=== PATIENT | female | born 1950 | race Caucasian/White ===

== ENCOUNTER 2023-10-07 23:10 | Inpatient (IN) | payer MEDICARE, SELFPAY ==
[2023-10-08] VITALS (7 sets, daily range): BP systolic 150–188; BP diastolic 80–102; PULSE 62–72; RESP 18–20; TEMP 36.1–37.4; O2SAT 96–98; BMI 23.0
[2023-10-08] MEDS: KCL 20 MEQ IN NS 1,000 ML 84 MEQ IV (02:13)
[2023-10-08 02:30] LABS: Appearance Urine UA CLEAR; Bilirubin Urine UA NEGATIVE (NEGATIVE); Color Urine UA YELLOW; Glucose Urine UA NEGATIVE (Negative); Ketones Urine UA 2+ (NEGATIVE); Leukocyte Esterase Urine UA NEGATIVE (NEGATIVE); Nitrite Urine UA NEGATIVE (Negative); Occult Blood Urine UA NEGATIVE (Negative); Protein Urine UA NEGATIVE (Negative); Specific Gravity Urine UA 1.015 (1.000-1.035); Urobilinogen Urine UA 0.2 E.U./dL (0.2)
[2023-10-08 02:51] LABS: Bacteria Urine None Seen; Culture Indicated Urine Cult Not Indicated; RBC Urine None Seen (0-5/HPF); Squamous Epithelial Cell Urine 0-1 /HPF (0-5/HPF); Urine Volume 10mL (spun); WBC Urine None Seen (0-5/HPF)
[2023-10-08 05:34] LABS: Add Manual Diff / Slide Review NO; Basophils Absolute Auto 100 /uL (0-100); Basophils Percent Auto 0.8 % (0-2); Eosinophils Absolute Auto 100 /uL (0-450); Eosinophils Percent Auto 1.6 % (2-4); Hematocrit 38.4 % (36-46); Hemoglobin 12.8 g/dL (12.0-16.0); Lymphocytes Absolute Auto 1800 /uL (1100-4500); Lymphocytes Percent Auto 24.1 % (25-40); Mean Corpuscular HGB Conc 33.2 % (30-36); Mean Corpuscular Hemoglobin 29.3 PG (26-34); Mean Corpuscular Volume 88.3 fL (80-100); Monocytes Absolute Auto 800 /uL (0-900); Neutrophils Absolute Auto 4600 /uL (1500-7000); Neutrophils Percent Auto 62.5 % (50-75); Platelet Count 247 X10^3/uL (150-400); Red Blood Cell Count 4.35 X10^6/uL (4.0-5.2); White Blood Cell Count 7.4 X10^3/uL (4.5-11.0)
[2023-10-08 05:55] LABS: PTT Partial Thromboplastin Tim 32 SECONDS (25.1-36.5)
[2023-10-08 06:06] LABS: Alanine Aminotransferase 24 IU/L (<35); Albumin 3.9 g/dL (3.5-5.0); Albumin Globulin Ratio 1.3 (1.0-2.8); Alkaline Phosphatase 77 U/L (38-126); Aspartate Aminotransferase 28 IU/L (14-36); BUN Creatinine Ratio 29.6 (6-22); Bilirubin Total 0.6 mg/dL (0.2-1.3); Blood Urea Nitrogen 16 mg/dL (7-17); Calcium 8.9 mg/dL (8.4-10.2); Carbon Dioxide 25 mmol/L (22-32); Chloride 110 mmol/L (98-107); Estimated Glomerular Filt Rate > 60 mL/min (>60); Globulin 2.9 g/dL (1.7-4.1); Glucose 96 mg/dL (80-110); HEMOLYSIS < 15 (0-50); Magnesium 2.2 mg/dL (1.6-2.3); Potassium 3.5 mmol/L (3.4-5.1); Sodium 141 mmol/L (137-145); Total Protein 6.8 g/dL (6.3-8.2)
--- NOTE | 2023-10-08 07:18 | PC.NURSE ---
Pt admitted to AC unit at 00:30 from [facility] on Monday transferred by [facility]. Alert and oriented x 4, answers questions appropriately. NIH 2, slight left arm drift and expressive aphasia. KCL with NS running @ 84ml/hr. SBA for transfers. Oriented to room and call light. Bed alarm on and call light within reach.
--- NOTE | 2023-10-08 07:18 | PM.HP.1 ---
History of Present Illness History of Present Illness Date Patient Seen: 10/08/23 Time Patient Seen: 01:30 Chief complaint: DX, CVA Narrative: Transfer from [facility] 73 years old female with a past medical history of hypertension was initially evaluated by her primary physician with significant speech issues. She had went to bed normally and woke up around midnight not being able to talk. In the morning on 10/04, was told to have a major mental status change and was not able to focus. Denies any weakness in the upper or lower extremity with no significant gait instability. Reports a newly diagnosed colorectal cancer with scheduled chemotherapy. Subsequently underwent MRI of the head that shows an acute infarction involving the left basal ganglia. Neurology was consulted and recommended management medically but transfer to higher level of care due to lack of telemetry or other available medical facilities. Subsequently transferred to [facility] for further care [facility] Social History household members: family Smoking Status: Never smoker alcohol intake: former Meds Home Medications and Allergies Home Medications Medication Instructions Recorded Confirmed Type acetaminophen 500 mg PO Q6HR PRN Pain, Mild 10/08/23 10/08/23 History amlodipine 5 mg tablet 5 mg PO DAILY 10/08/23 10/08/23 History capecitabine 150 mg tablet (Xeloda) 150 mg PO DAILY 10/08/23 10/08/23 History capecitabine 500 mg tablet (Xeloda) 500 mg PO DAILY 10/08/23 10/08/23 History losartan 50 mg tablet 50 mg PO DAILY 10/08/23 10/08/23 History ondansetron HCl 8 mg tablet 8 mg PO Q8H PRN nausea 10/08/23 10/08/23 History oxycodone 5 mg tablet 5 mg PO Q6H PRN pain 10/08/23 10/08/23 History polyethylene glycol 3350 17 17 g PO DAILY PRN Constipation 10/08/23 10/08/23 History gram/dose oral powder (Miralax) prochlorperazine maleate 10 mg 10 mg PO Q6HR nausea 10/08/23 10/08/23 History tablet (Compazine) tretinoin 0.05 % topical cream 1 applic topical BEDTIME 10/08/23 10/08/23 History (Retin-A) Allergies Allergy/AdvReac Type Severity Reaction Status Date / Time shellfish derived Allergy Unknown Verified 10/08/23 01:04 aspirin Allergy Unknown Uncoded 10/08/23 01:02 Review of Systems Review of Systems Narrative: A 12 point review of system is negative unless otherwise stated in history of present illness Exam Vital Signs (past 8 hours): - 10/08/23 00:40 10/08/23 04:38 Temperature 97.4 F L 96.9 F L Pulse Rate 72 72 Respiratory Rate 20 19 Blood Pressure 188/95 H 151/88 H Pulse Oximetry 98 97 Narrative Exam Narrative: Patient is awake, able to follow commands. Responding appropriately to time place and person. Extremities?4-5/5 in upper and lower extremity Objective Labs 10/08/23 05:12 10/08/23 05:12 Labs: Laboratory Results - last 24 hr 10/08/23 10/08/23 00:40 05:12 WBC 7.4 RBC 4.35 Hgb 12.8 Hct 38.4 MCV 88.3 MCH 29.3 MCHC 33.2 RDW 14.0 Plt Count 247 Neut % (Auto) 62.5 Lymph % (Auto) 24.1 L [place] % (Auto) 11.0 Eos % (Auto) 1.6 L Baso % (Auto) 0.8 Neut # (Auto) 4600 Lymph # (Auto) 1800 [place] # (Auto) 800 Eos # (Auto) 100 Baso # (Auto) 100 APTT 32 Sodium 141 Potassium 3.5 Chloride 110 H Carbon Dioxide 25 BUN 16 Creatinine 0.54 Estimated GFR > 60 BUN/Creatinine Ratio 29.6 H Glucose 96 Calcium 8.9 Magnesium 2.2 Total Bilirubin 0.6 AST 28 ALT 24 Alkaline Phosphatase 77 Total Protein 6.8 Albumin 3.9 Globulin 2.9 Albumin/Globulin Ratio 1.3 Urine Color Yellow Urine Appearance Clear Urine pH 7.0 Ur Specific [place] 1.015 Urine Protein Negative Urine Glucose (UA) Negative Urine Ketones 2+ H Urine Occult Blood Negative Urine Nitrate Negative Urine Bilirubin Negative Urine Urobilinogen 0.2 Ur Leukocyte Esterase Negative Urine RBC None seen Urine WBC None seen Ur Squamous Epith Cells 0-1 /hpf Urine Bacteria None seen Ur Culture Indicated? Cult not indicated Vol Urine Centrifuged 10ml (spun) Assessment & Plan Assessment & Plan narrative: 73 years old female with a past medical history of hypertension was initially evaluated by her primary physician with significant speech issues. She had went to bed normally and woke up around midnight not being able to talk. In the morning on 10/04, was told to have a major mental status change and was not able to focus. Denies any weakness in the upper or lower extremity with no significant gait instability. Reports a newly diagnosed colorectal cancer with scheduled chemotherapy. Subsequently underwent MRI of the head that shows an acute infarction involving the left basal ganglia. Neurology was consulted and recommended management medically but transfer to higher level of care due to lack of telemetry or other available medical facilities. Subsequently transferred to [facility] for further care 1. 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 From reports, patient was like a 4-year-old. But now patient is oriented able to answer questions though she has slow speech with slow recollection but able to answer them. Currently has gait instability. Focus on medical management since she is out of the tPA window. Monitor in the telemetry, get an echocardiogram, consult physical occupational and speech therapy. Gradual reduction in the blood pressures and monitor for now 2. Hypokalemia. Will supplement 20 levels closely 3 history of cancer being followed by oncology in the outpatient setting. Locally advanced rectal adenocarcinoma favoring CT 4 B N0 M0 per records. Scheduled for neoadjuvant therapy with long course chemoradiation with Xeloda followed by total 6 weeks of chemotherapy per records. Ongoing patient management 4. DVT prophylaxis will be with Lovenox . 5 hypertension. Hold home blood pressure medications focus on gradual diet. Target systolic blood pressureis 160 Patient will be admitted under inpatient status with an acute stroke with need for further intervention with expected length of stay greater than 2 midnights Patient was evaluated by audiovideo device. Location of the patient is [facility] in [facility]. Time-Based Coding :: [TOTAL MINUTES] spent with patient and on the chart (including review of chart, obtaining history, exam, reviewing outside data, placing orders, documenting exam and treatment plan, and counseling patient) on [DATE].
--- NOTE | 2023-10-08 07:51 | DI.ECHO.S_ITS ---
[facility]+ [facility] : : [address] : : [place] : : [id number] : : Phone: [phone] Echocardiogram Report + + :Name: MESSI FOSTER Study Date: 10/08/2023 Height: 63 in : :Hospital ReadingLocation: Weight: 126 lb : : Gender: Female BSA: 1.6 m2 : :: 1950 Age: 73 yrs BP: 160/93 mmHg: :Reason For Study: CVA : :Ordering Physician: AVA, : :MILLIE Neves MD Performed By: Apolonia Kessler : :Referring: MILLIE ESCALANTE MD : + + Interpretation Summary The ejection fraction is estimated to be 60-65%. Diastolic parameters suggest probable normal left ventricular diastolic function and normal filling pressures. The right ventricle is normal in size and function. No significant valvular abnormalities. Pulmonary artery pressures cannot be estimated because of the lack of a measurable TR jet velocity but the IVC suggests a CVP of around 3 mmHg. Procedure: A two-dimensional transthoracic echocardiogram with color flow and Doppler was performed. The study quality was technically good. There is no prior echocardiogram noted for this patient. The patient was in sinus rhythm with heart rates between 64-67 bpm during the exam. Left Ventricle: The left ventricle is normal in size and wall thickness. The ejection fraction is estimated to be 60-65%. Diastolic parameters suggest probable normal left ventricular diastolic function and normal filling pressures. Right Ventricle: The right ventricle is normal in size and function. Atria: The left atrial size is normal. Right atrial size is normal. There is no Doppler evidence for an interatrial shunt. Mitral Valve: There is mild mitral annular calcification. The mitral valve leaflets appear mildly thickened, but open well. There is trace mitral regurgitation. Aortic Valve: The aortic valve is trileaflet. The aortic valve is mildly calcified. There is no aortic valve stenosis. No aortic regurgitation is present. Tricuspid Valve: The tricuspid valve is normal in structure and function. There is a trace or physiologic amount of tricuspid regurgitation. Pulmonary artery pressures cannot be estimated because of the lack of a measurable TR jet velocity but the IVC suggests a CVP of around 3 mmHg. Pulmonic Valve: The pulmonic valve is not well visualized. There is no pulmonic valvular regurgitation. Great Vessels: The aortic root is normal size. The dimensions of the ascending aorta are normal. The IVC is of normal diameter and collapses greater than 50% with a sniff. This suggests a low right atrial pressure of 3 mm Hg. Pericardium/ Pleura There is no pericardial effusion. There is no pleural effusion. MMode/2D Measurements & Calculations LVIDd: 3.8 cm LVOT diam: 2.0 cm LVIDs: 2.4 cm Ao root diam: 2.7 cm FS: 37.9 % asc Aorta Diam: 3.4 cm IVSd: 0.98 cm Ao Arch Diam (Prox Trans): 1.7 cm LVPWd: 0.84 cm LV ball. diameter/BSA (cm/m^2): 2.4 LV sys. diameter/BSA (cm/m^2): 1.5 LA A2 area: 12.6 cm2 RA long axis: 4.2 cm LA A4 area: 12.5 cm2 RA area: 11.3 cm2 LA length (vol): 3.7 cm RA vol: 25.9 ml LA vol: 35.9 ml RA : 16.3 ml/m2 LA vol index: 22.6 ml/m2 IVC diam: 0.91 cm RVD1 (basal): 3.7 cm TAPSE: 1.8 cm Doppler Measurements & Calculations Ao V2 max: 190.5 cm/sec LVOT Max Kimo: 90.5 cm/sec Ao V2 mean: 136.4 cm/sec LV V1 max P.3 mmHg Ao max P.5 mmHg LV V1 VTI: 19.6 cm Ao mean P.0 mmHg VICENTE(I,D): 1.5 cm2 Ao V2 VTI: 42.6 cm VICENTE(V,D): 1.5 cm2 sev ratio: 0.46 VICENTE indexed to BSA (cm^2/m^2): 0.93 MV E max kimo: 87.3 cm/sec PA V2 max: 74.5 cm/sec MV A max kimo: 78.3 cm/sec PA V2 mean: 54.3 cm/sec MV E/A: 1.1 PA mean P.3 mmHg Med Peak E' Kimo: 6.8 cm/sec PA pr(Accel): 46.5 mmHg E/E' med: 12.9 Lat Peak E' Kimo: 8.3 cm/sec E/E' lat: 10.5 E/e' average: 11.7 MV dec time: 0.15 sec SV(LVOT): 63.2 ml Reading Physician:03:13 PM
--- NOTE | 2023-10-08 09:18 | DI.CT.S_ITS ---
PROCEDURE: CT ANGIO HEAD AND NECK INDICATIONS: CVA TECHNIQUE: After the administration of intravenous contrast, 1 mm thick sections acquired from the aortic arch through the [place]. MIP reformats of the arterial vasculature were utilized. For radiation dose reduction, the following was used: automated exposure control, adjustment of mA and/or kV according to patient size. COMPARISON: None. FINDINGS: Cerebral CT Angiogram: Internal carotid arteries: No acute findings. Intracranial ICA are patent with no significant stenosis. No occlusion. No aneurysm. Anterior cerebral arteries: Unremarkable. No significant stenosis. No occlusion. No aneurysm. Middle cerebral arteries: Unremarkable. No significant stenosis. No occlusion. No aneurysm. 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 The P2 segment is supplied by a widely patent posterior communicating artery. Remainder of the distal vasculature unremarkable. Basilar artery: Diminutive but patent artery terminates in the superior cerebellar artery. Vertebral arteries: Left vertebral artery dominance. The right vertebral artery is quite diminutive but patent. Dural venous sinuses: Unremarkable given phase of enhancement. Other: Arterial phase brain parenchyma is unremarkable. Neck CT Angiogram: Internal carotid arteries: Unremarkable. No significant stenosis. No dissection or occlusion. Common carotid arteries: Unremarkable. No significant stenosis. No dissection or occlusion. External carotid arteries: Unremarkable. No occlusion. Vertebral arteries: Left vertebral artery dominance. Right vertebral artery diminutive but patent Other: Incidental 1 cm right thyroid nodule, no follow-up Aortic Arch and Mediastinum: Partially visualized aortic arch unremarkable without evidence of aneurysm. Origins of the great vessels unremarkable. IMPRESSION: Unremarkable CT angiogram of the head neck. No evidence of large vessel occlusion, aneurysm or vascular malformation Any quantitative measurements of stenosis were performed using NASCET criteria. Approved by: Jason Fitch M.D. on 10/08/2023 at 14:30
[2023-10-08 09:34] LABS: Cholesterol 251 mg/dL (140-199); HDL Cholesterol 64 mg/dL (40-60); LDL Cholesterol Calculated 174 mg/dL (<100); Triglycerides 67 mg/dL (35-150)
[2023-10-08 10:05] LABS: TSH w/ Reflex to FT4 1.71 uIU/mL (0.47-4.68)
--- NOTE | 2023-10-08 10:43 | PM.HP.1 ---
History of Present Illness History of Present Illness Date Patient Seen: 10/08/23 Time Patient Seen: 08:05 Date of Onset of Symptoms: 10/05/23 Chief complaint: DX, CVA Narrative: 73 years old female with a past medical history of hypertension was initially evaluated by her primary physician with significant speech issues. She had went to bed normally and woke up around midnight not being able to talk. In the morning on 10/04, was told to have a major mental status change and was not able to focus. Denies any weakness in the upper or lower extremity with no significant gait instability. Reports a newly diagnosed colorectal cancer with scheduled chemotherapy. Subsequently underwent MRI of the head that shows an acute infarction involving the left basal ganglia. Neurology was consulted and recommended management medically but transfer to higher level of care due to lack of telemetry or other available medical facilities. Subsequently transferred to [facility] for further care Interval history: The patient was admitted overnight and a in continues to have change in mental status according to her sister's Sylvia and anti. Alyse is present at bedside and I spoke with Marissa by phone in at the bedside with the patient. Both agree that she appears to have mild confusion and a child-like manner. The patient appears to understand her condition on interview with fluent speech though also appears frustrated at times. She states persistent weakness and has mild left pronator drift. She states chronic left leg pain with a history of sciatica, and uses a TENS unit at home, which her sister brought in. She relates that she was severely constipated starting at the end of June and underwent evaluation including biopsy of an anal mass on 09/13/2023, with biopsy report per record showing invasive moderately differentiated colonic adenocarcinoma present at the deep edge of the excision, with normal expression of mismatch repair proteins unlikely to represent Mendiola syndrome. Per her oncologist Dr. Costa MRI was without patricia disease, however with signs of local invasion through the internal/external anal sphincter, right levator ani muscle and potentially the posterior wall of the vagina, without evidence of metastatic disease on staging, however right lung 5 mm nodule favored to be unrelated. [facility] Medical History Chronic low back pain with left-sided sciatica Essential hypertension Colorectal cancer CVA (cerebral vascular accident) Social History household members: family Smoking Status: Never smoker alcohol intake: former Meds Home Medications and Allergies Home Medications Medication Instructions Recorded Confirmed Type acetaminophen 500 mg PO Q6HR PRN Pain, Mild 10/08/23 10/08/23 History amlodipine 5 mg tablet 5 mg PO DAILY 10/08/23 10/08/23 History capecitabine 150 mg tablet (Xeloda) 150 mg PO DAILY 10/08/23 10/08/23 History capecitabine 500 mg tablet (Xeloda) 500 mg PO DAILY 10/08/23 10/08/23 History losartan 50 mg tablet 50 mg PO DAILY 10/08/23 10/08/23 History ondansetron HCl 8 mg tablet 8 mg PO Q8H PRN nausea 10/08/23 10/08/23 History oxycodone 5 mg tablet 5 mg PO Q6H PRN pain 10/08/23 10/08/23 History polyethylene glycol 3350 17 17 g PO DAILY PRN Constipation 10/08/23 10/08/23 History gram/dose oral powder (Miralax) prochlorperazine maleate 10 mg 10 mg PO Q6HR nausea 10/08/23 10/08/23 History tablet (Compazine) tretinoin 0.05 % topical cream 1 applic topical BEDTIME 10/08/23 10/08/23 History (Retin-A) Allergies Allergy/AdvReac Type Severity Reaction Status Date / Time aspirin Allergy Unknown Verified 10/08/23 09:32 shellfish derived Allergy Unknown Verified 10/08/23 01:04 Review of Systems Review of Systems ROS: Yes All systems reviewed with the patient and are negative except as otherwise documented Exam Vital Signs (past 8 hours): - 10/08/23 04:38 10/08/23 08:08 Temperature 96.9 F L 98.9 F Pulse Rate 72 72 Respiratory Rate 19 19 Blood Pressure 151/88 H 160/93 H Pulse Oximetry 97 97 Oxygen Flow Rate 0 Oxygen Flow Rate 0 Narrative Exam Narrative: GENERAL: This is a well-nourished, well-developed patient, in no apparent distress, appears mildly anxious. HEAD: Atraumatic. Normocephalic. No temporal or scalp tenderness. EYES: Pupils equal round and reactive. Extraocular motions intact. No scleral icterus. No injection or drainage. ENT: Mucous membranes pink and moist. NECK: Trachea midline. No JVD, bruits or lymphadenopathy. Supple, nontender, no meningeal signs. CARDIOVASCULAR: Regular rate and rhythm without murmurs, gallops, or rubs. RESPIRATORY: Clear to auscultation. GASTROINTESTINAL: Abdomen soft, non-tender, nondistended. EXTREMITIES: No clubbing, cyanosis, or edema. BACK: Nontender without deformity or crepitance. No flank tenderness. NEUROLOGIC: Alert, oriented, speech fluent, full upper motor strength except mild left pronator drift, 4/5 lower extremity weakness DERMATOLOGIC: No rashes or skin lesions. Objective ECG Impression: EKG 10/07/2023 at 3:54 p.m. normal sinus rhythm at 75 beats per minute, no ischemic changes, normal EKG. Imaging MRI brain with and without contrast 10/07/2023: Radiologist's impression: There is an acute infarction involving the left basal ganglia and portions of the putamen Labs 10/08/23 05:12 10/08/23 05:12 Labs: Laboratory Results - last 24 hr 10/08/23 10/08/23 00:40 05:12 WBC 7.4 RBC 4.35 Hgb 12.8 Hct 38.4 MCV 88.3 MCH 29.3 MCHC 33.2 RDW 14.0 Plt Count 247 Neut % (Auto) 62.5 Lymph % (Auto) 24.1 L [place] % (Auto) 11.0 Eos % (Auto) 1.6 L Baso % (Auto) 0.8 Neut # (Auto) 4600 Lymph # (Auto) 1800 [place] # (Auto) 800 Eos # (Auto) 100 Baso # (Auto) 100 APTT 32 Sodium 141 Potassium 3.5 Chloride 110 H Carbon Dioxide 25 BUN 16 Creatinine 0.54 Estimated GFR > 60 BUN/Creatinine Ratio 29.6 H Glucose 96 Calcium 8.9 Magnesium 2.2 Total Bilirubin 0.6 AST 28 ALT 24 Alkaline Phosphatase 77 Total Protein 6.8 Albumin 3.9 Globulin 2.9 Albumin/Globulin Ratio 1.3 Triglycerides 67 Cholesterol 251 H LDL Cholesterol, Calc 174 H HDL Cholesterol 64 H TSH 1.71 Urine Color Yellow Urine Appearance Clear Urine pH 7.0 Ur Specific [place] 1.015 Urine Protein Negative Urine Glucose (UA) Negative Urine Ketones 2+ H Urine Occult Blood Negative Urine Nitrate Negative Urine Bilirubin Negative Urine Urobilinogen 0.2 Ur Leukocyte Esterase Negative Urine RBC None seen Urine WBC None seen Ur Squamous Epith Cells 0-1 /hpf Urine Bacteria None seen Ur Culture Indicated? Cult not indicated Vol Urine Centrifuged 10ml (spun) Assessment & Plan Assessment & Plan narrative: 73 year old female with a past medical history of hypertension was initially evaluated by her primary physician with significant speech issues. She had went to bed normally and woke up around midnight not being able to talk. In the morning on 10/04, was told to have a major mental status change and was not able to focus. Denies any weakness in the upper or lower extremity with no significant gait instability. Reports a newly diagnosed colorectal cancer with scheduled chemotherapy. Subsequently underwent MRI of the head that shows an acute infarction involving the left basal ganglia. Neurology was consulted and recommended management medically but transfer to higher level of care due to lack of telemetry or other available medical facilities. Subsequently transferred to [facility] for further care 1. 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 From reports, patient was like a 4-year-old. But now patient is oriented able to answer questions though she has slow speech with slow recollection but able to answer them, though family reports she still is not at baseline. Her basal ganglia stroke does not explain possible behavioral or cortical changes, and will continue to observe with frequent checks.. Currently has gait instability. Focus on medical management since she is out of the tPA window. Monitor on telemetry, obtain echocardiogram, consult physical occupational and speech therapy. Gradual reduction in the blood pressures and monitor for now. Treat with aspirin 325 mg daily and atorvastatin 80 mg daily. Check lipids. 2. Hypertension. Monitor and allow permissive hypertension. Restart amlodipine 5 mg daily and losartan 50 mg daily tomorrow if stable. Target systolic blood pressure is 160. 3. Hypokalemia. Will supplement 20 levels closely 4. Colorectal cancer. She is followed by oncology in the outpatient setting. Locally advanced rectal adenocarcinoma favoring T4B N0 M0 per records. Scheduled for neoadjuvant therapy with long course chemoradiation with Xeloda followed by total 6 weeks of chemotherapy per records. Ongoing patient management 5. Chronic back pain with left-sided sciatica. Continue TENS unit and Tylenol as needed. Consider lumbar MRI, which can be pursued outpatient given chronic nature and outpatient oncologic workup. 6. DVT prophylaxis will be with Lovenox 7. Code status: Full code. Reviewed with the patient on admission with her sister present by phone. Plan: -telemetry monitoring -permissive hypertension goal blood pressure 160 -aspirin 325 mg daily -atorvastatin 80 mg daily -check lipids and TSH -echocardiogram -physical therapy consultation -speech therapy consultation -Lovenox DVT prophylaxis -full code status Patient will be admitted under inpatient status with an acute stroke with need for further intervention with expected length of stay greater than 2 midnights Time-Based Coding :: [TOTAL MINUTES] spent with patient and on the chart (including review of chart, obtaining history, exam, reviewing outside data, placing orders, documenting exam and treatment plan, and counseling patient) on [DATE]. Quality VTE Deep Vein Thrombosis/Pulmonary Embolism Present on Admission: No MIPS - Admit I confirm the patient?s Advance Care Plan is present, Code status is documented, Surrogate decision maker is in patient?s record [If Yes, STOP here]: Yes MIPS - Meds 'Current medications' to include all prescriptions, [id number] products, herbals, cannabis/cannabidiol products, and vitamin/mineral/dietary (nutritional) supplements. I have utilized all available resources to obtain, update, or review the patient?s current medications. [If Yes, STOP here]: Yes PROFEE Charge Codes Initial inpatient/observation care: 44624
--- NOTE | 2023-10-08 12:26 | PT.IIE ---
Medical History (Last Reviewed 10/08/23 @ 12:13 by Preet Zambrano MD) Chronic low back pain with left-sided sciatica Colorectal cancer CVA (cerebral vascular accident) Essential hypertension Physical Therapy Inpatient Evaluation/Re-Eval M1 PT/OT-IP Prior Functional Status Start: 10/08/23 10:25 Freq: NEEDED Status: Active Protocol: Document 10/08/23 11:05 MB (Rec: 10/08/23 12:25 MB [id number]) Medical Review Prior Functional Status Medical History Reviewed Yes Diet/Fluid Consistency Regular Communication At baseline, WNLs Mobility and Gait I, no falls, pt has bruise on right franco that she does not know what happened Activities of Daily Living and IADL's I in the house Social History Household Members none Living Arrangements House Number of Floors (Floors) One Floor Number of Stairs To Enter/Railing? 3 steps with right rail to enter Employment Status Retired Additional Social History Comment No DME per pt and sister, many other staff entering and pt needing to toilet and after eval for 60 minutes and history, pt and sister back into and so more home environment questions can be asked next date M2 PT-IP Current Condition Start: 10/08/23 10:25 Freq: NEEDED Status: Active Protocol: Document 10/08/23 11:05 MB (Rec: 10/08/23 12:25 MB [id number]) Physical Therapy Current Condition Current Condition Evaluation Date 10/08/23 Treatment Diagnosis L basal ganglia stroke, recent diagnosis of rectal CA M3 PT-IP Subjective Start: 10/08/23 10:25 Freq: NEEDED Status: Active Protocol: Document 10/08/23 11:05 MB (Rec: 10/08/23 12:25 MB [id number]) Subjective Physical Therapy Visit Type Type Initial Evaluation Visit Start Time 11:05 Visit Stop Time 12:05 Number of MEDART OPERATOR Visits 0 Physical Therapy Visit Comments Patient Comments Pt has some trouble word- finding, slow recall and communicates various concerns including left sided leg pain after pelvic US, rectal cancer , new stroke, wishing to use her TENS, having medication concerns, wishing to have mental health provider look at her meds while she is off [facility] , etc. Sister present during assessment. Therapy Pain Assessment Pain When Pain Assessed At Rest Pain Present Pain Present Pain Reported Location LLE Intensity 5 Scale Used Guajardo-Guillen (Faces) Pain Behaviors Calling Out,Facial Grimacing, Guarding Pain Management Techniques Modification of Treatment,Re- positioning M4 PT-IP Mobility and Gait Start: 10/08/23 10:25 Freq: NEEDED Status: Active Protocol: Document 10/08/23 11:05 MB (Rec: 10/08/23 12:25 MB [id number]) PT-Bed Mobility Assessment Rolling Level of Assist Independent Supine to Sit Supine to Sit Standby Assistance,1 Person Assistance,Head of Bed Elevated,Bedrails Scooting Scooting to Edge of Bed Standby Assistance Scooting Up and Down in Bed Standby Assistance PT-Transfer Assessment Sit to and From Stand Sit to and from Stand Contact Guard Assistance,1 Person Assistance,Use of Upper Extremities Equipment Transfer Assistive Device None,Front Wheeled Walker Orthotic/Prosthetic Devices or Brace: No Transfers Transfer Destination Chair,Toilet Transfer Technique Ambulation Transfer Ability Level of Assist Contact Guard Assistance Comments Mobility Comments Pt wishing to get up to toilet at start of assessment and she uses walker and carries it as PT manages IV line, similar assistance after assessment back to toilet: urinary urgency and pt rushing to rest room Gait Assessment Gait Gait Assistance Required: Contact Guard Assist Distance (Feet) 20 Able to Maintain Weight Bearing Status Yes During Gait Assistive Devices Assistive Device None,Front Wheeled Walker Orthotic/Prosthetic Devices or Brace: No Gait Deviations General Gait Pattern Wide Based Gait Factors Limiting Gait Function Factors Limiting Gait Function Poor Balance,Poor Safety Awareness Comments Gait Comments Carries RW or no AD for two gait trials to BR, pt rushing to rest room and PT managing IV pole, superv for hygiene and PT provides hand sash installer afterwards PT-Balance Assessment Sitting Balance and Reactions Static Sitting Balance Ability Normal Dynamic Sitting Balance Ability Normal Standing Balance and Reactions Static Standing Balance Ability Good Dynamic Standing Balance Ability Fair Device Used None or RW M5 PT-IP Objective Assessments Start: 10/08/23 10:25 Freq: NEEDED Status: Active Protocol: Document 10/08/23 11:05 MB (Rec: 10/08/23 12:25 MB [id number]) Orientation Orientation/Cognition Level of Alertness Alert Orientation Name,Age,Birthday,Month,Year, Day of Week,Place,Situation Language Function Ability Word Finding Difficulties Safety Awareness Decreased Safety Awareness Comments Slow processing but does appear to provide accurate course of events history when using her google calendar to remember what happened when Gross Range of Motion Upper Extremity ROM Assessment Within Functional Limits Lower Extremity ROM Assessment Within Functional Limits Strength Upper Extremity Strength Assessment Bilaterally Impaired Lower Extremity Strength Assessment Bilaterally Impaired Comments Strength Comments Left extremities are weaker than the right but weakness all extremities. R shoulder is grossly 4+/5, left shoulder is 4/5; right elbow flexion not checked d/t IV and left elbow extension is 3+/5, weaker swatch clerk on left. Left hip flexion is 3+/5, right is 4/5, B knee flexion and extension are 4/5 and B ankler DF and great toe extension are 4+/5 Coordination Assessment Gross Coordination Gross Coordination Impaired Assessment Finger to Nose Test Moderate Impairment Foot Tapping Test Minimal Impairment Heel on Franco Test Minimal Impairment Coordination Comments B finger to nose is abnormal, worse on the left as far as dysmetria and striking her nose hard with the testing, slow on the right Sensation Assessment Sensation Gross Sensation WNL Light Touch Intact Comments Sensation Comments Pt reports paresthesias in LLE Muscle Tone Muscle Tone WNL Yes M6 PT-IP Treatment Start: 10/08/23 10:25 Freq: NEEDED Status: Active Protocol: Document 10/08/23 11:05 MB (Rec: 10/08/23 12:25 MB [id number]) Physical Therapy Treatment Education Education Provided Safety Other Treatments Other Treatment Performed Extensive education to pt and sister about PT role and recommendations for d/c, that PT will pass on information/ requests about pain, mental health provider consult and TENS unit to the appropriate staff. PT ed pt and sister in role of SNF as far as ongoing therapy and 24 hour assistance at d/c. M7 PT-IP Assessment and Plan Start: 10/08/23 10:25 Freq: NEEDED Status: Active Protocol: Document 10/08/23 11:05 MB (Rec: 10/08/23 12:25 MB [id number]) PT Summary Assessment and Plan Potential Rehabilitation Potential Good Status of Condition at Evaluation Evolving Summary Impairments Pain,Strength,Balance, Coordination,Cognition,Bed Mobility,Transfers,Gait, Activity Tolerance Progress Towards Goals Progressing Toward Goals Assessment Summary Pt is a 73 y/o female presenting with left basal ganglia infarct and recent dx of rectal CA. Pt with dysmetria in BUEs, worse on the left with coordination testing, mild weakness in LUE and B LE weakness. Pt reports left leg pain after pelvic US earlier in the month. Pt and sister state that pt did not have a lumbar or sacral MRI after rectal CA diagnosis. PT is concerned that left LE pain could be more from rectal/ pelvic area compared to stroke and PT communicates with nsg and MD. Pt is anxious during assessment and does have some word-finding, processing time challenges. Recommend SNF at d /c and ongoing PT. Pt would like to use her TENS for pain and communicated that she will have to clear with doctor and PT also communicates with doctor. Icing may also be helpful. Goals Bed Mobility Goal Independent Transfer Goal Independent Gait Goal Independent Gait Distance 100 Other Goals Ascend and descend 3 steps with right rail and no more than superv to allow safe home entrance. Pt will perform WNLs on standardized balance test to decrease fall risk. Days to Meet Goals 5 Frequency of Treatment Frequency Of Treatment Once a Day Treatment Plan Physical Therapy Treatment Plan Bed Mobility Training,Transfer Training,Gait Training, Therapeutic Exercise,Balance Retraining,Discharge Planning, Hot or Cold Pack,Neuromuscular Re-ed,Coordination Retraining ,Manual Therapy Weight Bearing Status Weight Bearing Status Weight Bear as Tolerated Recommendations To Nursing Amount of Assist Needed 1 Person Assist Discharge Recommendations PT Discharge Recommendations SNF Rehab Transportation Needs at Discharge Private Vehicle,Wheelchair/ Cabulance
[2023-10-08] MEDS: ACETAMINOPHEN 325 MG TABLET 650 MG PO ×2 (13:37→19:35)
--- NOTE | 2023-10-08 15:16 | CM.DANOTE ---
Initial DCP Assessment Visit Note Reviewed EMR and team rounds for pt's medical status and updates. Met with pt and her sister, Connie, at bedside to introduce self and role. Pt found to be alert and oriented, but still having some slow processing and moments of confusion. Pt lives independently at baseline in her own home in [place]. Her sisters are both very involved. Plan was initially for SNF rehab, however pt was just recently dx with colorectal cancer, has already established with [facility], and SNF would delay her tx. Her sister, Marissa, in [place] is planning to arrive in the next week or so and will remain with pt during her treatment for care and transportation to appointments. PHOTO MACHINE OPERATOR completd the DPOA-, per their request, and a copy was given to the [facility] to forward to Medical Records for scanning. She will be receiving an ECHO today, will work with PT, followed by RASHAUN castillo on Monday. Anticipate d/c likely late Monday. Payor: [facility] PCP: Dr. Clark Pt is a 73 year-old F who was transferred from [facility] in [place] for a higher level of care, they did not have telemetry or stroke resources. She had been evaluated by her PCP earlier yesterday due to significant speech issues, she was unable to talk when she woke up in the middle of the night on 10/04 with altered mental status. MR of the brain was completed and showed an acute infarction to the L-basal ganglia. She still has some gait instability, however she is continuing to improve. She also has a newly dx colorectal cancer that is pending treatment. Per sister, Connie, pt also has a hx of bipolar dx, has not seen a psychiatrist in 20-years, and her sister was wanting a psychiatry consult while she was here to discuss her meds in relation to starting chemo. This PHOTO MACHINE OPERATOR explained that her PCP will need to work with the [facility] team to coordinate this outpatient, as this is not an immediate need, and we don't offer psychiatry here in Acute Care for non-emergent needs. Discharge Planning/Care Management CM Discharge Assessment Start: 10/08/23 15:13 Freq: Status: Active Protocol: Document 10/08/23 15:14 DPL (Rec: 10/08/23 15:16 DPL [id number]) Discharge Planning Assessment Assigned Maintenance Carpenter PIA [place] Advance Directives? No History Provided By Patient,Family Member,Medical Record Expected Length of Stay 3 Has Patient been admitted in last 30 No days? Prior Living Arrangements House Household Members none Type of transporation used prior to Drives own vehicle admit Independent with ADL's Yes Is patient alert and oriented? No: She is alert and oriented, but still has slow processing . Caregiver for Another No Comment N/A Comment N/A Comment OP Oncology f/u at [facility]. Barriers to Discharge No Discharge Plan Home Transportation Arrangement Sister Referrals Initiated None needed Whiteboard Updated in Patient Room with Yes name and ext. # of Maintenance Carpenter Review Status In Process Please Provide Date Initial DC 10/08/23 Assessment Was Performed
[2023-10-08] MEDS: ATORVASTATIN 20 MG TABLET 80 MG PO (20:21)
[2023-10-09] VITALS (10 sets, daily range): BP systolic 165–211; BP diastolic 77–110; PULSE 60–97; RESP 14–19; TEMP 36.6–37.2; O2SAT 97–98
--- NOTE | 2023-10-09 | DI.CT.S_ITS ---
PROCEDURE: CT ANGIO HEAD AND NECK INDICATIONS: Acute Rt side paralaysis TECHNIQUE: After the administration of intravenous contrast, 1 mm thick sections acquired from the aortic arch through the [place]. 3-dimensional enngbmi-xabpexrsd-ytrzklikhe (MIP) and/or volume rendering reformats were acquired of the central intracranial vasculature and neck separately. For radiation dose reduction, the following was used: automated exposure control, adjustment of mA and/or kV according to patient size. COMPARISON: [facility], CT, CT ANGIO HEAD AND NECK, 10/08/2023, 14:13. FINDINGS: Image quality: Diagnostic. BRAIN: CSF spaces: Ventricles are normal in size and shape. Basal cisterns are patent. No extra-axial fluid collections. Brain: No significant abnormality of the brain can be seen. Skull and face: Calvarium and facial bones appear intact, without suspicious lesions. Orbits appear normal. Sinuses: Sinuses and mastoids are clear. HEAD CT ANGIOGRAPHY: Anterior circulation: Intracranial internal carotid arteries demonstrate atherosclerotic calcifications without hemodynamically significant stenosis.. The flow within the paired anterior cerebral arteries is normal and symmetric. The flow within the middle cerebral arteries is normal and symmetric. The anterior communicating artery is seen. No aneurysms are seen. Posterior circulation: Visualized portions of the vertebral arteries demonstrate normal caliber, and join to form a normal appearing basilar artery. Patent posterior communicating arteries are seen with hyperplasia or a plate of the P1 segments of the bilateral posterior cerebral arteries, a normal variant. Flow within the posterior cerebral arteries is normal and symmetric. No aneurysms are seen. NECK CT ANGIOGRAPHY: Carotid system: The great vessels demonstrate a conventional anatomy as they arise from the aortic arch. The origins of the common carotid arteries appear patent. The common carotid arteries demonstrate normal caliber and courses. The bifurcation regions are both widely patent. The internal carotid arteries demonstrate normal calibers and courses. Posterior circulation: The origins of the vertebral arteries both appear widely patent. The more superior extracranial portions of both vertebral arteries also demonstrate normal courses and calibers. They join to form a normal appearing basilar artery. Soft tissues: Visualized neck soft tissues demonstrate no suspicious abnormalities. Hypoattenuating right thyroid nodule does not require dedicated imaging follow-up based on ACR guidelines. Bones: No suspicious bony lesions. Multilevel degenerative changes in the cervical spine. IMPRESSION: 1. No significant intracranial arterial abnormality is seen. 2. No significant abnormality is seen within the arteries of the neck. 3. Smaller hypoattenuation in the left periventricular white matter may represent a subacute infarct or chronic microvascular ischemic changes. No acute intracranial hemorrhage or mass effect. Consider MRI of the brain for further evaluation. Any quantitative measurements of stenosis were performed using NASCET criteria. Approved by: Kulwinder Holman M.D. on 10/09/2023 at 23:46
[2023-10-09] MEDS: ACETAMINOPHEN 325 MG TABLET 650 MG PO ×5 (02:45→18:31)
--- NOTE | 2023-10-09 07:42 | PM.PN.1 ---
Subjective Subjective Interval history: Admitted with CVA. S: Speech improved. No extremity weakness. Some left leg pain. Exam Vital Signs (past 8 hours): - 10/09/23 03:00 Temperature 98.4 F Pulse Rate 67 Respiratory Rate 18 Blood Pressure 183/97 H Pulse Oximetry 97 Oxygen Flow Rate 0 Oxygen Delivery Method Room Air Oxygen Flow Rate 0 Narrative Exam Narrative: NAD, alert and oriented. Fluent speech, slow with odd affect. Lungs are clear, normal rate and effort. Heart is regular, no murmur gallop or rub. Abdomen is soft, non distended. Extremities are free of edema. Normal extremity strength. Objective ECG Impression: NSR. Imaging MRI - head: Radiologist's impression: There is an acute infarction involving the left basal ganglia and portions of the putamen Labs 10/08/23 05:12 10/08/23 05:12 Labs: Laboratory Results - last 24 hr 10/08/23 05:12 Triglycerides 67 Cholesterol 251 H LDL Cholesterol, Calc 174 H HDL Cholesterol 64 H TSH 1.71 PFSH Medical History Chronic low back pain with left-sided sciatica Essential hypertension Colorectal cancer CVA (cerebral vascular accident) Social History household members: none Smoking Status: Never smoker alcohol intake: former Assessment & Plan Assessment & Plan narrative: 1. CVA involving the left basal ganglia, present on admission and active. - Treat with aspirin 81 mg daily and atorvastatin 80 mg daily. Check lipids. 2. Hypertension, present on admission and active. - Monitor and allow permissive hypertension. Restart amlodipine 5 mg daily and losartan 50 mg daily tomorrow if stable. Target systolic blood pressure is 160. 3. Hypokalemia, present on admission and active. - replace. 4. Colorectal cancer, present on admission and active. - She is followed by oncology in the outpatient setting. Locally advanced rectal adenocarcinoma favoring T4B N0 M0 per records. Scheduled for neoadjuvant therapy with long course chemoradiation with Xeloda followed by total 6 weeks of chemotherapy per records. Ongoing patient management 5. Chronic back pain with left-sided sciatica, present on admission and active. -Continue TENS unit and Tylenol as needed. Consider lumbar MRI, which can be pursued outpatient given chronic nature and outpatient oncologic workup. LILLIAN/Dispo: home 10/09. DVT prophylaxis will be with Lovenox Code status: Full code. Reviewed with the patient on admission with her sister present by phone. Time-Based Coding :: 25 min spent with patient and on the chart (including review of chart, obtaining history, exam, reviewing outside data, placing orders, documenting exam and treatment plan, and counseling patient) on 10/08. Quality VTE Deep Vein Thrombosis/Pulmonary Embolism Present on Admission: No
--- NOTE | 2023-10-09 09:24 | ST.IPIE ---
Visit Care Team Role Provider Type Porter Clark Primary Care Provider Non-Staff Specialty: Family Practice Address: [address], [place], [address] Email: Jeremy Jamil MD Admit Provider Physician Attending Provider Referring Provider Specialty: Internal Medicine Address: [address], [address] Fax: Email: Current Diagnoses Cerebral infarction, unspecified (10/07/23) Past Medical History (Last Reviewed 10/09/23 @ 07:43 by Placido Del Toro MD) Chronic low back pain with left-sided sciatica (Medical) Colorectal cancer (Medical) CVA (cerebral vascular accident) (Medical) Essential hypertension (Medical) ST IP Initial Evaluation Report RETAIL SALES VITAMIN CONSULTANT Clinical Swallow Evaluation Start: 10/09/23 09:09 Freq: Status: Active Protocol: Document 10/09/23 09:10 MA (Rec: 10/09/23 09:24 MA [id number]) Clinical Swallow Evaluation Session Time Visit Start Time 08:30 Visit Stop Time 08:55 Total Visit Minutes [address] Jamil Reason for Referral CVA Setting Assessment Location Acute Care Visit Type Note Type Initial evaluation Patient Information Identification Type Name,Wristband History Per H&P: 73 years old female with a past medical history of hypertension was initially evaluated by her primary physician with significant speech issues. She had went to bed normally and woke up around midnight not being able to talk. In the morning on , was told to have a major mental status change and was not able to focus. Denies any weakness in the upper or lower extremity with no significant gait instability. Reports a newly diagnosed colorectal cancer with scheduled chemotherapy. Subsequently underwent MRI of the head that shows an acute infarction involving the left basal ganglia. Neurology was consulted and recommended management medically but transfer to higher level of care due to lack of telemetry or other available medical facilities. Subsequently transferred to [facility] for further care. Pt referred for ST evaluation d/t CVA in order to assess swallow/speech/cognitive function. Subjective Observations Pt sitting upright in bed, awake, alert, agreeable to evaluation. Pt Ox3. Able to express wants/needs with full sentences, however emotional lability at times. She states her sister reports her speech is like little girl talk. Pt reports she does not notice a change in speech compared to baseline. Reported by Patient/Caregiver Current Diet Regular (IDDSI 7) Baseline Feeding Method Independent in self-feeding The IDDSI Framework Protocol: IDDSI.1 Objective Assessment Mental Status Alert,Responsive,Cooperative Comment Pt with natural dentition, good condition. Lingal and labial ROM and strength appear WFL. Food and Liquid Trials Position During Assessment Upright (90 degrees) Liquids Trialed Thin (IDDSI 0) Solid Trials Soft & Bite-sized (IDDSI 6), Regular (IDDSI 7) Administration Type Straw,Self-feeding Oral Impairment Within normal limits Oral Phase Comments Pt consumed ilir crackers and orange slices with 6 oz of thin water via straw. Pt reports she has her grandmothers throat in regards to coughing when things get caught in her throat. She states this has been happening daily for years . For solids Pt took small bites, prolonged mastication however adequate bolus formation and control, independently alternating liquids/solids to assist with intake, no oral stasis, timely ap transport. For liquidis Pt demonstrated adequate suction , good oral acceptance and containment. Pharyngeal Impairment Within normal limits Pharyngeal Phase Comments No overt s/s of aspiration with all PO trials, specifically coughing/choking or reports of food stuck in throat. Fatigue/Endurance Endurance WNL The IDDSI Framework Protocol: IDDSI.1 Findings Swallowing Function Within functional limits Severity of Swallow Impairment Within functional limits Prognosis Good Based on Cognitive status,Family support Impact on Safety and Functioning No limitations Recommendations Instrumental Assessment No Swallowing Treatment No Recommended Solids Regular (IDDSI 7) Recommended Liquids Thin (IDDSI 0) Other Recommendations ST recommends IDDSI 7/IDDSI 0 with the below mentioned safe swallowing strategies in place . ST recommends new referral for speech if changes in status occur. Safety Precautions/Swallowing Remain upright (90 degrees) Recommendations during all oral intake,Upright position at least 30 minutes after meals,Small bites and sips when eating,Slow rate; swallow between bites, Alternate liquids and solids Medication Recommendations As Tolerated Education Patient/Caregiver Education Described results of evaluation,Patient expressed understanding of evaluation
[2023-10-09] MEDS: polyethylene glycoL 3350 17 GM POWD.PACK PO (10:14)
--- NOTE | 2023-10-09 14:04 | PT.IPTN ---
Current Diagnoses Cerebral infarction, unspecified (10/07/23) Physical Therapy Treatment Note M2 PT-IP Current Condition Start: 10/08/23 10:25 Freq: NEEDED Status: Active Protocol: Document 10/08/23 11:05 MB (Rec: 10/08/23 12:25 MB [id number]) Physical Therapy Current Condition Current Condition Evaluation Date 10/08/23 Treatment Diagnosis L basal ganglia stroke, recent diagnosis of rectal CA M3 PT-IP Subjective Start: 10/08/23 10:25 Freq: NEEDED Status: Active Protocol: Document 10/09/23 13:00 MB (Rec: 10/09/23 14:04 MB [id number]) Subjective Physical Therapy Visit Type Type Treatment Note Visit Start Time 13:00 Visit Stop Time 13:40 Number of FISH BAILER Visits 0 Physical Therapy Visit Comments Patient Comments Pt is agreeable to PT. She con 't with slow verbalizations, trouble with word-finding. Therapy Pain Assessment Pain When Pain Assessed At Rest Pain Present Pain Present Denied Pain M4 PT-IP Mobility and Gait Start: 10/08/23 10:25 Freq: NEEDED Status: Active Protocol: Document 10/09/23 13:00 MB (Rec: 10/09/23 14:04 MB [id number]) PT-Bed Mobility Assessment Supine to Sit Supine to Sit Independent,Head of Bed Elevated,Bedrails Sit to Supine Sit to Supine Independent,Head of Bed Elevated,Bedrails Scooting Scooting to Edge of Bed Independent Scooting Up and Down in Bed Independent PT-Transfer Assessment Sit to and From Stand Sit to and from Stand Standby Assistance,1 Person Assistance,Use of Upper Extremities Equipment Transfer Assistive Device Gait Belt,Front Wheeled Walker Orthotic/Prosthetic Devices or Brace: No Transfers Transfer Destination Bed Transfer Technique Ambulation Transfer Ability Level of Assist Standby Assistance Gait Assessment Gait Gait Assistance Required: Standby Assistance,1 Person Assist Distance (Feet) 80 Able to Maintain Weight Bearing Status Yes During Gait Assistive Devices Assistive Device Gait Belt,Front Wheeled Walker Gait Deviations General Gait Pattern Wide Based Gait Factors Limiting Gait Function Factors Limiting Gait Function Poor Safety Awareness Comments Gait Comments Increased Michell angle, right greater than left foot. Pt gait trains 80'x1, 20'x1, 20' x1 and 80'x1 with RW and SBA. No left leg pain when up walking and pt reports worse pain when she is lying down and ready to go to sleep Stair Climbing Assessment Evaluation Level of Assist On Stairs Standby Assistance Devices Stair Climbing Assistive Devices Left Railing,Right Railing Technique/Endurance Stair Climbing Direction Ascend and Descend Stair Climbing Technique Step Over Step Number of Steps Climbed 3 Stair Climbing Set # Repetitions (reps) 1 PT-Balance Assessment Sitting Balance and Reactions Static Sitting Balance Ability Normal Dynamic Sitting Balance Ability Normal Standing Balance and Reactions Static Standing Balance Ability Good Dynamic Standing Balance Ability Good Device Used RW M5 PT-IP Objective Assessments Start: 10/08/23 10:25 Freq: NEEDED Status: Active Protocol: Document 10/08/23 11:05 MB (Rec: 10/08/23 12:25 MB [id number]) Orientation Orientation/Cognition Level of Alertness Alert Orientation Name,Age,Birthday,Month,Year, Day of Week,Place,Situation Language Function Ability Word Finding Difficulties Safety Awareness Decreased Safety Awareness Comments Slow processing but does appear to provide accurate course of events history when using her google calendar to remember what happened when Gross Range of Motion Upper Extremity ROM Assessment Within Functional Limits Lower Extremity ROM Assessment Within Functional Limits Strength Upper Extremity Strength Assessment Bilaterally Impaired Lower Extremity Strength Assessment Bilaterally Impaired Comments Strength Comments Left extremities are weaker than the right but weakness all extremities. R shoulder is grossly 4+/5, left shoulder is 4/5; right elbow flexion not checked d/t IV and left elbow extension is 3+/5, weaker hat conditioner on left. Left hip flexion is 3+/5, right is 4/5, B knee flexion and extension are 4/5 and B ankler DF and great toe extension are 4+/5 Coordination Assessment Gross Coordination Gross Coordination Impaired Assessment Finger to Nose Test Moderate Impairment Foot Tapping Test Minimal Impairment Heel on Franco Test Minimal Impairment Coordination Comments B finger to nose is abnormal, worse on the left as far as dysmetria and striking her nose hard with the testing, slow on the right Sensation Assessment Sensation Gross Sensation WNL Light Touch Intact Comments Sensation Comments Pt reports paresthesias in LLE Muscle Tone Muscle Tone WNL Yes M6 PT-IP Treatment Start: 10/08/23 10:25 Freq: NEEDED Status: Active Protocol: Document 10/09/23 13:00 MB (Rec: 10/09/23 14:04 MB [id number]) Physical Therapy Treatment Education Education Provided Safety Other Treatments Other Treatment Performed Extensive education to patient and then phone call to emergency contact, Varsha, about benefits of RW for use at home and would they like for PT to ask SW for an order and PT can issue it on d/c date. Pt and sister with decreased receptiveness...it appears pt's house is not set- up to allow AD and sister states that she thought pt was going to d/c to [place] to [facility] or an apartment with their other sister, [place]. PT communicates will defer to SW and PT communicates with SW about Varsha wishing a call. Overall, it appears that pt and family are not aware about possible d/c soon from hospital. M7 PT-IP Assessment and Plan Start: 10/08/23 10:25 Freq: NEEDED Status: Active Protocol: Document 10/09/23 13:00 MB (Rec: 10/09/23 14:04 MB [id number]) PT Summary Assessment and Plan Potential Rehabilitation Potential Good Status of Condition at Evaluation Evolving Summary Impairments Pain,Strength,Balance, Coordination,Cognition,Bed Mobility,Transfers,Gait, Activity Tolerance Progress Towards Goals Progressing Toward Goals Assessment Summary Pt is gait training better and performs steps well today. Recommend ongoing PT and 24 hour superv at d/c. PT attempts to get RW order for possible issue. Connie, pt's sister, states that [place] has [employer] and [place] has DME availability and she knows how to access them. She states she is not aware of pt's discharging home and thought that pt will d/c to an apartment in [place] (which they do not currently have) to undergo CA treatment with their other sister. There seems to be social issues/ disconnect about d/c plan. Goals Transfer Goal Independent Gait Goal Independent Gait Distance 100 Other Goals Ascend and descend 3 steps with right rail and no more than superv to allow safe home entrance. Pt will perform WNLs on standardized balance test to decrease fall risk. Days to Meet Goals 5 Frequency of Treatment Frequency Of Treatment Once a Day Treatment Plan Physical Therapy Treatment Plan Bed Mobility Training,Transfer Training,Gait Training, Therapeutic Exercise,Balance Retraining,Discharge Planning, Hot or Cold Pack,Neuromuscular Re-ed,Coordination Retraining ,Manual Therapy Weight Bearing Status Weight Bearing Status Weight Bear as Tolerated Recommendations To Nursing Amount of Assist Needed 1 Person Assist Discharge Recommendations PT Discharge Recommendations Home vs SNF Transportation Needs at Discharge Private Vehicle
--- NOTE | 2023-10-09 14:09 | OT.IP.EVAL ---
Current Diagnoses Cerebral infarction, unspecified (10/07/23) Past Medical History (Last Reviewed 10/09/23 @ 07:43 by Placido Del Toro MD) Chronic low back pain with left-sided sciatica Colorectal cancer CVA (cerebral vascular accident) Essential hypertension Occupational Therapy Inpatient Evaluation/Re-Eval M1 PT/OT-IP Prior Functional Status Start: 10/08/23 10:25 Freq: NEEDED Status: Active Protocol: Document 10/09/23 14:57 CGR (Rec: 10/09/23 15:10 CGR [id number]) Medical Review Prior Functional Status Medical History Reviewed Yes Diet/Fluid Consistency Regular Communication At baseline, WNLs Mobility and Gait I, no falls, pt has bruise on right shah that she does not know what happened Activities of Daily Living and IADL's IND in all ADLs and IADLs at home. Pt does not drive. Social History Household Members none Living Arrangements House Number of Floors (Floors) Two Floors Number of Stairs To Enter/Railing? Pt has a ramp to enter or 3 steps with R railing. Pt has a small second floor that is not used. Home Environment High Toilet,Tub/Shower Employment Status Retired Additional Social History Comment Pt states she has a flat extra low bed. M2 OT-IP Current Condition Start: 10/09/23 14:57 Freq: Status: Active Protocol: Document 10/09/23 14:57 CGR (Rec: 10/09/23 15:10 CGR [id number]) Occupational Therapy Current Condition Current Condition Evaluation Date 10/09/23 Treatment Diagnosis L basal ganclia infarct, major mental status change. Diagnosis Onset Date 10/07/23 M3 OT- IP Subjective and Pain Start: 10/09/23 14:57 Freq: Status: Active Protocol: Document 10/09/23 14:57 CGR (Rec: 10/09/23 15:10 CGR [id number]) OT- Subjective Occupational Therapy Visit Type Type Initial Evaluation Visit Start Time 13:45 Visit Stop Time 14:09 Notes Pt is talking with sister on the phone when OT entered and requested to have sister stay on phone for the session. OT Pain Assessment Pain When Pain Assessed At Rest Pain Present Pain Present Pain Reported Location LLE Scale Used did not rate Management Techniques Distraction,Modification of Treatment,Re-positioning M4 OT- IP ADL's Start: 10/09/23 14:57 Freq: Status: Active Protocol: Document 10/09/23 14:57 CGR (Rec: 10/09/23 15:10 CGR [id number]) OT [id number] Comments OT Self-Feeding Comments not meal time OT ADL-Grooming General Evaluation Grooming Ability Independent Comments OT Grooming Comments washed hands at sink OT ADL-Oral Care Comments Oral Care Comments not performed OT ADL-Dressing General Eval Lower Body Dressing Ability Independent Areas Needing Assistance Socks OT ADL-Toileting General Evaluation Toileting Ability Independent OT ADL-Bathing Comments OT Bathing Comments not performed M5 OT- IP IADL's Start: 10/09/23 14:57 Freq: Status: Active Protocol: Document 10/09/23 14:57 CGR (Rec: 10/09/23 15:10 CGR [id number]) OT-Instrumental Activities of Daily Living Deficits IADL Deficits Identified Deficits Home Safety Awareness Awareness of Need for Assistance at Home Decreased Awareness Medication Management Medication Management Comments concerns regarding pt's ability to perform safely Money Management Money Management Comments concerns regarding pt's ability to perform safely Meal Preparation Meal Preparation Comments concerns regarding pt's ability to perform safely Frame Table Operator Helper Frame Table Operator Helper Comments concerns regarding pt's ability to perform safely Driving Driving Comments concerns regarding pt's ability to perform safely M6 OT- IP Functional Cognition Start: 10/09/23 14:57 Freq: Status: Active Protocol: Document 10/09/23 14:57 CGR (Rec: 10/09/23 15:10 CGR [id number]) Cognitive Factors Limiting Selfcare Function Cognitive Ability Level of Alertness Alert Patient Orientation Name,Age,Birthday,Month,Date, Year,Day of Week,Place, Situation Attention Span Ability Capable of Focused Attention, Capable of Sustained Attention Ability to Follow Commands Able to Follow One Step Commands with Increased Time, Able to Follow One Step Commands with Repetition OT- Vision and Hearing OT- Hearing Assessment OT- Hearing Assessment WFL OT- Vision Assessment Visual Acuity WFL Visual Attentiveness WFL Occular Pursuits WFL Visual Convergence WFL M7 OT- IP Mobility and Balance Start: 10/09/23 14:57 Freq: Status: Active Protocol: Document 10/09/23 14:57 CGR (Rec: 10/09/23 15:10 CGR [id number]) OT- Bed Mobility Assessment Rolling Level of Assistance Independent Supine to Sit Supine to Sit Assist Independent Sit to Supine Sit to Supine Assist Independent OT-Transfer Assessment Sit to and From Stand Sit to and from Stand Standby Assistance Transfers Transfer Ability Standby Assistance Technique Transfer Destination Bed Transfer Technique Stand Step Pivot Devices Transfer Assistive Devices Gait Belt Comments Mobility Comments Pt ambulated around the room to the bathroom and returned to the bed at end of session. OT- Balance Assessment Sitting Balance and Reactions Static Sitting Balance Ability Good Dynamic Sitting Balance Ability Good M8 OT- IP Objective Assessments Start: 10/09/23 14:57 Freq: Status: Active Protocol: Document 10/09/23 14:57 CGR (Rec: 10/09/23 15:10 CGR [id number]) OT Gross Range of Motion Upper Extremity Range of Motion Assessment Within Functional Limits OT Strength Upper Extremity Strength Assessment Within Functional Limits Comments Strength Comments grossly 4-/5 OT- Coordination Assessment Upper Extremity Finger to Nose Test Within Functional Limits Finger Tapping Test Within Functional Limits OT-Muscle Tone Assessment Muscle Tone WNL Yes OT Sensation Assessment Edema Edema Absent M9 OT- IP Assessment and Plan Start: 10/09/23 14:57 Freq: Status: Active Protocol: Document 10/09/23 14:57 CGR (Rec: 10/09/23 15:10 CGR [id number]) OT Summary Assessment and Plan Potential Rehabilitation Potential Good Analytic Complexity at Evaluation Low Summary OT Impairments Strength,Functional Cognition, Activity Tolerance Progress Towards Goals Slow Progress due to Cognition Assessment Summary Pt presents as a low complexity evaluation with cognitive changes and found to have a L basal ganglia infarct. Pt appears to be close to her baseline of IND for all aDLs but may benefit from formal cog assessment. Plan for SLUMS tomorrow if pt is still in hospital. Goals OT-Other Goals Perform SLUMS Days to Meet Goals 1 Frequency of Treatment Frequency Of Treatment Once a Day Treatment Plan OT Treatment Plan Functional Cognition Training, Patient/Family Education, Discharge Planning Discharge Recommendations OT Discharge Recommendations Home with Assistance Transportation Needs at Discharge Private Vehicle
[2023-10-09] MEDS: LOSARTAN 50 MG TABLET PO (14:24)
[2023-10-09] MEDS: ASPIRIN EC 81 MG TABLET PO (14:24)
[2023-10-09] MEDS: AMLODIPINE 5 MG TABLET PO (14:25)
--- NOTE | 2023-10-09 16:24 | CM.DPNOTE ---
DCP Note DIRECTOR OF HOTEL OPERATIONS reviewed EMR. Per hospitalist in morning rounds, plan to dc tomorrow Tu with sister support. Hopeful for pt to get HH. Per PT, rec home with assistance vs SNF at this time. Per OT, rec home with assistance. DIRECTOR OF HOTEL OPERATIONS attempted to meet with pt, either working with PT or sleeping soundly. Per provider, spoke with sister Alyse (p [phone]) who has questions about the DCP. DIRECTOR OF HOTEL OPERATIONS spoke with Alyse. Alyse is working on getting housing set up in [place] for pt for her radiation. Alyse trying to convince pt to move in with her for short term. Agreeable to HH/hopeful for extra support. Working on attempting reservations for ferry to p/u pt tomorrow. If unable to get reservation, hopeful for priority boarding ferry pass. Sister unsure if pt has ID with her for priority boarding pass, understands it is needed for medical boarding pass at ferry terminal. DIRECTOR OF HOTEL OPERATIONS spoke with Blanca from [facility] . Agreed to review. Likely able to accept. DIRECTOR OF HOTEL OPERATIONS completed f2f, placed behind FS. P: anticipate dc tomorrow 10/09 home with sister Alyse to transport and [facility] to follow for RN/PT/OT/DIRECTOR OF HOTEL OPERATIONS pending acceptance. F/u for priority boarding pass need. CM team ravin continue to follow closely PIA Zamarripa
[2023-10-09] MEDS: diphenhydrAMINE 25 MG TABLET PO (19:04)
[2023-10-09] MEDS: OXYCODONE IR 5 MG TABLET PO (21:43)
[2023-10-09] MEDS: ONDANSETRON 4 MG/2 ML INJ IV (21:43)
[2023-10-09] MEDS: ATORVASTATIN 20 MG TABLET 80 MG PO (21:43)
--- NOTE | 2023-10-09 23:13 | DI.CT.S_ITS ---
PROCEDURE: CT STROKE INDICATIONS: acute rt sided paralaysis and aphasia TECHNIQUE: Noncontrast 4.5 mm thick angled axial sections acquired from the foramen magnum to the vertex, with coronal reformats. For radiation dose reduction, the following was used: automated exposure control, adjustment of mA and/or kV according to patient size. COMPARISON: [facility], CT, CT ANGIO HEAD AND NECK, 10/08/2023, 14:13. FINDINGS: Image quality: Diagnostic. CSF spaces: Basal cisterns are patent. No extra-axial fluid collections. The ventricles are symmetric in size and shape. Brain: No acute intracranial hemorrhage or mass effect. Small area of hypoattenuation is seen in the left periventricular white matter versus upper basal ganglia possibly related to microvascular ischemic changes or subacute infarct. This does not appear significantly changed when compared to the CT from the day prior. There is cerebral volume loss for age, with resultant ventricular and sulcal prominence. There are periventricular and deep white matter chronic small vessel ischemic changes. There is intracranial internal carotid artery atherosclerosis. Skull and face: Calvarium and visualized facial bones appear intact, without suspicious lesions. Sinuses: Visualized sinuses and mastoids are clear. IMPRESSION: 1. Small area of hypoattenuation in the left periventricular white matter possibly related to subacute infarct or chronic microvascular ischemic changes. 2. No definite acute loss of guillaume-white matter differentiation. No acute intracranial hemorrhage or mass effect. If there is continued concern for acute stroke, recommend MRI of the brain for further evaluation. Multiple attempts were made to contact the ordering provider by telephone on 10/09/2023 at approximately 11:39 PM. Messages were left with callback instructions. This study fulfills neurological imaging criteria for inclusion or exclusion of acute stroke therapies based on available published neurological guidelines. Approved by: Kulwinder Holman M.D. on 10/09/2023 at 23:40
[2023-10-09] MEDS: HYDRALAZINE 20 MG/ML VIAL 10 MG IV (23:16)
[2023-10-09 23:51] LABS: INR 0.9 (0.9-1.3); Prothrombin Time 10.8 SECONDS (9.4-12.5)
[2023-10-09 23:54] LABS: Add Manual Diff / Slide Review NO; Basophils Absolute Auto 100 /uL (0-100); Basophils Percent Auto 0.8 % (0-2); Eosinophils Absolute Auto 200 /uL (0-450); Eosinophils Percent Auto 2.4 % (2-4); Hematocrit 42.3 % (36-46); Hemoglobin 13.8 g/dL (12.0-16.0); Lymphocytes Absolute Auto 3300 /uL (1100-4500); Mean Corpuscular HGB Conc 32.7 % (30-36); Mean Corpuscular Hemoglobin 29.6 PG (26-34); Mean Corpuscular Volume 90.6 fL (80-100); Monocytes Absolute Auto 700 /uL (0-900); Monocytes Percent Auto 9.2 % (3-14); Neutrophils Absolute Auto 3800 /uL (1500-7000); Neutrophils Percent Auto 46.6 % (50-75); Platelet Count 255 X10^3/uL (150-400); Red Blood Cell Count 4.67 X10^6/uL (4.0-5.2); Red Cell Distribution Width 14.9 % (11.6-14.8); White Blood Cell Count 8.1 X10^3/uL (4.5-11.0)
[2023-10-09 23:56] LABS: Alanine Aminotransferase 21 IU/L (<35); Albumin Globulin Ratio 1.2 (1.0-2.8); Alkaline Phosphatase 88 U/L (38-126); Aspartate Aminotransferase 33 IU/L (14-36); BUN Creatinine Ratio 27.1 (6-22); Bilirubin Total 0.4 mg/dL (0.2-1.3); Blood Urea Nitrogen 16 mg/dL (7-17); Calcium 9.4 mg/dL (8.4-10.2); Carbon Dioxide 28 mmol/L (22-32); Chloride 108 mmol/L (98-107); Estimated Glomerular Filt Rate > 60 mL/min (>60); Globulin 3.3 g/dL (1.7-4.1); Glucose 101 mg/dL (80-110); HEMOLYSIS < 15 (0-50); Potassium 3.7 mmol/L (3.4-5.1); Sodium 140 mmol/L (137-145); Total Protein 7.3 g/dL (6.3-8.2)
[2023-10-10] VITALS (11 sets, daily range): BP systolic 136–170; BP diastolic 71–90; PULSE 79–95; RESP 16–18; TEMP 36.8–37.6; O2SAT 94–99
--- NOTE | 2023-10-10 00:36 | PC.NURSE ---
Addendum entered by Chelsea Polk R.N. 10/10/23 03:35: Symptoms appear to be resolving. NIH:3. Able to move all four extremities, although still weak. Able to use BSC w/ 1PA & FWW. Patient is able to express needs, although still exhibiting expressive aphasia. Patient is currently on the phone with sister. Call-light within reach. Original Note: maintenance technician 3rd shift: 2199 assessment: Patient AxOx4, speech is clear although a bit delayed, able to move all four extremities. Reported left leg pain, medicated and repositioned for comfort, patient resting in bed. VSS, O2 saturation 98% on RA. 2300 assessment: When checking on patient, noticed she was having difficulty expressing words however appeared to understand what was being asked. Could only respond to yes/no questions. Could not lift right arm but could move fingers, was moving toes but could not lift legs. Could raise left arm but could not hold up. Noted facial paralysis, patient unable to smile. Patient was hypertensive (VS documented). Code stroke called 2304, MD Jamil called on [facility]. New orders placed. 10mg IV Hydralazine given. Labs drawn. CTA head/neck completed. Blood glucose: 93.
[2023-10-10] MEDS: ACETAMINOPHEN 325 MG TABLET 650 MG PO ×3 (07:06→21:58)
[2023-10-10] MEDS: LOSARTAN 50 MG TABLET PO (08:49)
[2023-10-10] MEDS: ASPIRIN EC 81 MG TABLET PO (08:49)
[2023-10-10] MEDS: polyethylene glycoL 3350 17 GM POWD.PACK PO (08:49)
[2023-10-10] MEDS: AMLODIPINE 5 MG TABLET PO (08:49)
--- NOTE | 2023-10-10 08:50 | PT.IPTN ---
Current Diagnoses Cerebral infarction, unspecified (10/07/23) Physical Therapy Treatment Note M2 PT-IP Current Condition Start: 10/08/23 10:25 Freq: NEEDED Status: Active Protocol: Document 10/08/23 11:05 MB (Rec: 10/08/23 12:25 MB [id number]) Physical Therapy Current Condition Current Condition Evaluation Date 10/08/23 Treatment Diagnosis L basal ganglia stroke, recent diagnosis of rectal CA M3 PT-IP Subjective Start: 10/08/23 10:25 Freq: NEEDED Status: Active Protocol: Document 10/10/23 09:19 TS (Rec: 10/10/23 09:32 TS [id number]) Subjective Physical Therapy Visit Type Type Treatment Note Visit Start Time 08:50 Visit Stop Time 09:17 Number of FISCAL AGENT Visits 1 Physical Therapy Visit Comments Patient Comments Pt found resting in bed, pt reports she couldn't move her body last night and there were a bunch of people in her room . She is agreeable to PT. Therapy Pain Assessment Pain When Pain Assessed At Rest Pain Present Pain Present Pain Reported M4 PT-IP Mobility and Gait Start: 10/08/23 10:25 Freq: NEEDED Status: Active Protocol: Document 10/10/23 09:19 TS (Rec: 10/10/23 09:32 TS [id number]) PT-Bed Mobility Assessment Supine to Sit Supine to Sit Independent,Head of Bed Elevated,Bedrails Sit to Supine Sit to Supine Independent,Head of Bed Elevated,Bedrails Scooting Scooting to Edge of Bed Independent Scooting Up and Down in Bed Independent PT-Transfer Assessment Sit to and From Stand Sit to and from Stand Standby Assistance Equipment Transfer Assistive Device Gait Belt,Front Wheeled Walker Orthotic/Prosthetic Devices or Brace: No Comments Mobility Comments Supine to sit Ind with HOB elevated 20D. STS with FWW SBA , pt has a slight posterior lean. She ambulated ~500'SBA with FWW and a step thru gait. She performed stairs x3 step over step with B handrails. Pt ambulated back to room, was left in bed, all needs met. Gait Assessment Gait Gait Assistance Required: Standby Assistance,1 Person Assist Distance (Feet) 500 Able to Maintain Weight Bearing Status Yes During Gait Assistive Devices Assistive Device Gait Belt,Front Wheeled Walker Orthotic/Prosthetic Devices or Brace: No Factors Limiting Gait Function Factors Limiting Gait Function Poor Safety Awareness Stair Climbing Assessment Evaluation Level of Assist On Stairs Standby Assistance Devices Stair Climbing Assistive Devices Left Railing,Right Railing Technique/Endurance Stair Climbing Direction Ascend and Descend Stair Climbing Technique Step Over Step Number of Steps Climbed 3 Stair Climbing Set # Repetitions (reps) 1 PT-Balance Assessment Sitting Balance and Reactions Static Sitting Balance Ability Good Dynamic Sitting Balance Ability Good Standing Balance and Reactions Static Standing Balance Ability Good Dynamic Standing Balance Ability Good Device Used RW M5 PT-IP Objective Assessments Start: 10/08/23 10:25 Freq: NEEDED Status: Active Protocol: Document 10/08/23 11:05 MB (Rec: 10/08/23 12:25 MB [id number]) Orientation Orientation/Cognition Level of Alertness Alert Orientation Name,Age,Birthday,Month,Year, Day of Week,Place,Situation Language Function Ability Word Finding Difficulties Safety Awareness Decreased Safety Awareness Comments Slow processing but does appear to provide accurate course of events history when using her google calendar to remember what happened when Gross Range of Motion Upper Extremity ROM Assessment Within Functional Limits Lower Extremity ROM Assessment Within Functional Limits Strength Upper Extremity Strength Assessment Bilaterally Impaired Lower Extremity Strength Assessment Bilaterally Impaired Comments Strength Comments Left extremities are weaker than the right but weakness all extremities. R shoulder is grossly 4+/5, left shoulder is 4/5; right elbow flexion not checked d/t IV and left elbow extension is 3+/5, weaker clinic lpn on left. Left hip flexion is 3+/5, right is 4/5, B knee flexion and extension are 4/5 and B ankler DF and great toe extension are 4+/5 Coordination Assessment Gross Coordination Gross Coordination Impaired Assessment Finger to Nose Test Moderate Impairment Foot Tapping Test Minimal Impairment Heel on Franco Test Minimal Impairment Coordination Comments B finger to nose is abnormal, worse on the left as far as dysmetria and striking her nose hard with the testing, slow on the right Sensation Assessment Sensation Gross Sensation WNL Light Touch Intact Comments Sensation Comments Pt reports paresthesias in LLE Muscle Tone Muscle Tone WNL Yes M6 PT-IP Treatment Start: 10/08/23 10:25 Freq: NEEDED Status: Active Protocol: Document 10/10/23 09:19 TS (Rec: 10/10/23 09:32 TS [id number]) Physical Therapy Treatment Education Education Provided Safety M7 PT-IP Assessment and Plan Start: 10/08/23 10:25 Freq: NEEDED Status: Active Protocol: Document 10/10/23 09:19 TS (Rec: 10/10/23 09:32 TS [id number]) PT Summary Assessment and Plan Potential Rehabilitation Potential Good Summary Impairments Pain,Strength,Balance, Coordination,Cognition,Bed Mobility,Transfers,Gait, Activity Tolerance Progress Towards Goals Progressing Toward Goals Assessment Summary Brigid continues to make progress with her mobility. She is ind for all bed mobility. She progressed her gait to ~500'SBA with FWW. She has some balance deficits and braces against bed to assist into standing. PT will continue to recommend home vs SNF. Goals Transfer Goal Independent Gait Goal Independent Gait Distance 100 Other Goals Ascend and descend 3 steps with right rail and no more than superv to allow safe home entrance. Pt will perform WNLs on standardized balance test to decrease fall risk. Days to Meet Goals 5 Frequency of Treatment Frequency Of Treatment Once a Day Treatment Plan Physical Therapy Treatment Plan Bed Mobility Training,Transfer Training,Gait Training, Therapeutic Exercise,Balance Retraining,Discharge Planning, Hot or Cold Pack,Neuromuscular Re-ed,Coordination Retraining ,Manual Therapy Weight Bearing Status Weight Bearing Status Weight Bear as Tolerated Recommendations To Nursing Amount of Assist Needed Standby Assistance Discharge Recommendations PT Discharge Recommendations Home vs SNF Transportation Needs at Discharge Private Vehicle
--- NOTE | 2023-10-10 10:29 | CM.DPC ---
DCP Cont. Reviewed EMR and team rounds for status updates. Pt was due to d/c back home today with Rogerio KUNZ, however she may have had another CVA last night. Per Hospitalist, she will receive additional workup today, then plan to d/c tomorrow, 10/10. This MIX CHEMIST updated her [facility] ONC team of plan.
--- NOTE | 2023-10-10 10:54 | DI.MRI.S_ITS ---
PROCEDURE: MR HEAD/BRAIN WO CON INDICATIONS: TIA TECHNIQUE: Non-contrast axial T1 spin echo, axial T2 fast spin echo, sagittal and axial FLAIR, coronal T2 fast spin echo, axial gradient echo, axial diffusion and ADC through the brain. COMPARISON: [facility], CT, CT ANGIO HEAD AND NECK, 10/09/2023, 23:22. [facility], CT, CT STROKE, 10/09/2023, 23:22. FINDINGS: Image quality: Excellent. CSF spaces: Ventricles appear symmetric in size and shape. Basal cisterns are patent. No extra-axial fluid collections. Brain: There is abnormal diffusion-weighted signal seen on the left, primarily within the deep white matter, as on series 11, image 65. There is associated dark signal seen on the ADC map. Developing T2 weighted signal can be seen at this site. No intracranial bleeds or mass effects. There is cerebral volume loss for age. There are periventricular and deep white matter chronic small vessel ischemic changes. Brainstem appears normal. No chronic ischemic insults. Normal intravascular flow voids are present. Skull and face: Calvarial bone marrow is normal in signal. Orbits are normal. Sinuses: Sinuses and mastoids are clear. IMPRESSION: There is a subacute infarct seen involving the deep white matter of the left frontal lobe. Dictated by: Omar Alan M.D. on 10/10/2023 at 14:05 Approved by: Omar Alan M.D. on 10/10/2023 at 14:07
--- NOTE | 2023-10-10 11:50 | P.PN_ITS ---
Subjective Subjective Interval history: She had an episode last night at 11:00 p.m. where she would difficulty speaking. A stat CT was negative for acute bleed or clear acute findings. She does have a known brainstem stroke. She notes that she would left leg pain which is periodic since her rectal biopsy. She was given oxycodone for this, then had the episode. She has had oxycodone outpatient before. She has been on aspirin and statin since yesterday. Exam Vital Signs (past 8 hours): - 10/10/23 04:55 10/10/23 08:49 10/10/23 09:00 Temperature 98.2 F Pulse Rate 79 79 80 Respiratory Rate 16 Blood Pressure 138/77 138/77 155/88 H Pulse Oximetry 96 97 Oxygen Flow Rate 0 Oxygen Delivery Method Room Air Oxygen Flow Rate 0 Narrative Exam Narrative: NAD, alert and oriented. Speech is fairly normal, there are occasional hesitations or pauses. Lungs are clear, normal rate and effort. Heart is regular, no murmur gallop or rub. Abdomen is soft, non distended. Extremities are free of edema. No facial droop, EOMI. Arm and leg strength is normal. Objective Labs 10/09/23 22:16 10/09/23 22:16 Labs: Laboratory Results - last 24 hr 10/09/23 22:16 WBC 8.1 RBC 4.67 Hgb 13.8 Hct 42.3 MCV 90.6 MCH 29.6 MCHC 32.7 RDW 14.9 H Plt Count 255 Neut % (Auto) 46.6 L Lymph % (Auto) 41.0 H Crenshaw % (Auto) 9.2 Eos % (Auto) 2.4 Baso % (Auto) 0.8 Neut # (Auto) 3800 Lymph # (Auto) 3300 Crenshaw # (Auto) 700 Eos # (Auto) 200 Baso # (Auto) 100 PT 10.8 INR 0.9 Sodium 140 Potassium 3.7 Chloride 108 H Carbon Dioxide 28 BUN 16 Creatinine 0.59 Estimated GFR > 60 BUN/Creatinine Ratio 27.1 H Glucose 101 Calcium 9.4 Total Bilirubin 0.4 AST 33 ALT 21 Alkaline Phosphatase 88 Total Protein 7.3 Albumin 4.0 Globulin 3.3 Albumin/Globulin Ratio 1.2 [facility] Medical History Chronic low back pain with left-sided sciatica Essential hypertension Colorectal cancer CVA (cerebral vascular accident) Social History household members: none Smoking Status: Never smoker alcohol intake: former Assessment & Plan Assessment & Plan narrative: 1. CVA involving the left basal ganglia, present on admission and active. - Treat with aspirin 81 mg daily and atorvastatin 80 mg daily. Check lipids. -she had transient speech difficulty yesterday, this is not anatomically consistent with her stroke location by imaging. We will repeat MRI today to rule out evidence of other interval changes. 2. Hypertension, present on admission and active. - Monitor and allow permissive hypertension. Restart amlodipine 5 mg daily and losartan 50 mg daily tomorrow if stable. Target systolic blood pressure is 160. 3. Hypokalemia, present on admission and resolved. - replace. 4. Colorectal cancer, present on admission and active. - She is followed by oncology in the outpatient setting. Locally advanced rectal adenocarcinoma favoring T4B N0 M0 per records. Scheduled for neoadjuvant therapy with long course chemoradiation with Xeloda followed by total 6 weeks of chemotherapy per records. Ongoing patient management 5. Chronic back pain with left-sided sciatica, present on admission and active. -Continue TENS unit and Tylenol as needed. Consider lumbar MRI, which can be pursued outpatient given chronic nature and outpatient oncologic workup. PLAN: -continue aspirin statin. -repeat MRI to rule out interval changes. DISPO: Likely back to [place] with family tomorrow, October 10. Time-Based Coding :: 30 min spent with patient and on the chart (including review of chart, obtaining history, exam, reviewing outside data, placing orders, documenting exam and treatment plan, and counseling patient) on 10/09. Quality VTE Deep Vein Thrombosis/Pulmonary Embolism Present on Admission: No
--- NOTE | 2023-10-10 13:43 | OT.IP.TRT ---
Current Diagnoses Cerebral infarction, unspecified (10/07/23) Occupational Therapy Treatment Note M2 OT-IP Current Condition Start: 10/09/23 14:57 Freq: Status: Active Protocol: Document 10/09/23 14:57 CGR (Rec: 10/09/23 15:10 CGR [id number]) Occupational Therapy Current Condition Current Condition Evaluation Date 10/09/23 Treatment Diagnosis L basal ganclia infarct, major mental status change. Diagnosis Onset Date 10/07/23 M3 OT- IP Subjective and Pain Start: 10/09/23 14:57 Freq: Status: Active Protocol: Document 10/10/23 13:46 [facility] (Rec: 10/10/23 13:58 [facility] [id number]) OT- Subjective Occupational Therapy Visit Type Type Treatment Note Visit Start Time 13:00 Visit Stop Time 13:43 Occupational Therapy Visit Comments Patient Comments Pt agreed to brush her teeth and do cognitive assessment. Patient/Caregiver Goals TO go home. OT Pain Assessment Pain When Pain Assessed At Rest Pain Present Pain Present Denied Pain M4 OT- IP ADL's Start: 10/09/23 14:57 Freq: Status: Active Protocol: Document 10/10/23 13:46 [facility] (Rec: 10/10/23 13:58 [facility] [id number]) OT [id number] Comments OT Self-Feeding Comments Noted when pt rinsing her mouth out small green food particles coming out. When asked if pt has any difficulty to eat, pt denied any problems. Educated pt to be aware for any pocketing, also to notify pt's nurse. OT ADL-Grooming General Evaluation Areas Needing Assistance Retrieving/Set-up of Grooming Items Comments OT Grooming Comments Pt able to stand by the sink with FWW for needs. OT ADL-Oral Care General Eval Oral Care Ability Independent OT ADL-Dressing General Eval Lower Body Dressing Ability Independent Comments OT Dressing Comments Pt able to vanda/doff her socks while seated on the edge of the bed independently. OT ADL-Toileting Comments OT Toileting Comments Pt states not needing to go. Suggested pt may need to get BSC when doing chemo. OT ADL-Bathing Comments OT Bathing Comments Pt will benefit from a shower chair or tub bench. M5 OT- IP IADL's Start: 10/09/23 14:57 Freq: Status: Active Protocol: Document 10/09/23 14:57 CGR (Rec: 07/29/24 15:10 CGR [id number]) OT-Instrumental Activities of Daily Living Deficits IADL Deficits Identified Deficits Home Safety Awareness Awareness of Need for Assistance at Home Decreased Awareness Medication Management Medication Management Comments concerns regarding pt's ability to perform safely Money Management Money Management Comments concerns regarding pt's ability to perform safely Meal Preparation Meal Preparation Comments concerns regarding pt's ability to perform safely Grant Specialist Grant Specialist Comments concerns regarding pt's ability to perform safely Driving Driving Comments concerns regarding pt's ability to perform safely M6 OT- IP Functional Cognition Start: 10/09/23 14:57 Freq: Status: Active Protocol: Document 10/10/23 13:46 [facility] (Rec: 10/10/23 13:58 [facility] [id number]) Cognitive Factors Limiting Selfcare Function Cognitive Ability Memory Description Short Term Impaired Safety Awareness Underestimates Need for Assistance Executive Function Ability Unable to Remember Details Cognitive Tests SLUMS Pt scored 21/30 whcih implies mild cognitive deficits. Pt thought it was Monday, needing increased time to solve 100- 23, able to name 11 animals in one minute, able to recall 2/ 5 objects after time passed, able to answer 2/4 questions right after paragraph read. Cognitive Comments Cognitive Assessment Comments Pt having difficulty to answer home safety situation of fire , what to do in case the toilet floods. At this time best for pt to have 03/10 available assist for her needs . M7 OT- IP Mobility and Balance Start: 10/09/23 14:57 Freq: Status: Active Protocol: Document 10/10/23 13:46 [facility] (Rec: 10/10/23 13:58 [facility] [id number]) OT- Bed Mobility Assessment Supine to Sit Supine to Sit Assist Independent Sit to Supine Sit to Supine Assist Independent OT-Transfer Assessment Sit to and From Stand Sit to and from Stand Standby Assistance Transfers Transfer Ability Standby Assistance Technique Transfer Destination Bed Transfer Technique Stand Step Pivot Devices Transfer Assistive Devices Front Wheeled Walker Comments Mobility Comments Distant supervision with fww at this time. OT- Balance Assessment Sitting Balance and Reactions Static Sitting Balance Ability Normal Dynamic Sitting Balance Ability Normal Standing Balance and Reactions Static Standing Balance Ability Good Dynamic Standing Balance Ability Fair Comments Other Balance Tests/Deviations/Treatment Use of FWW : M8 OT- IP Objective Assessments Start: 10/09/23 14:57 Freq: Status: Active Protocol: Document 10/09/23 14:57 CGR (Rec: 10/09/23 15:10 CGR [id number]) OT Gross Range of Motion Upper Extremity Range of Motion Assessment Within Functional Limits OT Strength Upper Extremity Strength Assessment Within Functional Limits Comments Strength Comments grossly 4-/5 OT- Coordination Assessment Upper Extremity Finger to Nose Test Within Functional Limits Finger Tapping Test Within Functional Limits OT-Muscle Tone Assessment Muscle Tone WNL Yes OT Sensation Assessment Edema Edema Absent M9 OT- IP Assessment and Plan Start: 10/09/23 14:57 Freq: Status: Active Protocol: Document 10/10/23 13:46 [facility] (Rec: 10/10/23 13:58 [facility] [id number]) OT Summary Assessment and Plan Potential Rehabilitation Potential Good Analytic Complexity at Evaluation Low Summary OT Impairments Strength,Functional Cognition, Activity Tolerance Progress Towards Goals Slow Progress due to Cognition Assessment Summary Pt scored 21/30 on the SLUMS which implies cognitive deficits which may be her baseline or also affect by her recent CVA. Pt needing increased time to get her words out and to problem solve at this time. Pt will benefit form 03/10 available assist for her safety awareness, bathing, and IADL needs. Goals Dressing Goal Independent Toileting Goal Independent Bathing Goal Independent Toilet Transfer Goal Independent Shower Transfer Goal Independent OT-Other Goals Goals based on without the FWW Days to Meet Goals 5 Frequency of Treatment Other frequency 5x/wk Treatment Plan OT Treatment Plan Functional Cognition Training, Patient/Family Education, Discharge Planning Discharge Recommendations OT Discharge Recommendations Home with Assistance,Home Health Home Equipment Needs shower chair versus tub bench Transportation Needs at Discharge Private Vehicle
[2023-10-10] MEDS: ATORVASTATIN 20 MG TABLET 80 MG PO (21:08)
[2023-10-10] MEDS: HYDRALAZINE 20 MG/ML VIAL 10 MG IV (21:59)
[2023-10-11 03:52] VITALS: BP 156/78; PULSE 75; RESP 14; TEMP 36.7; O2SAT 99
[2023-10-11 06:10] LABS: Hematocrit 38.3 % (36-46); Hemoglobin 12.7 g/dL (12.0-16.0); Mean Corpuscular HGB Conc 33.3 % (30-36); Mean Corpuscular Hemoglobin 29.6 PG (26-34); Platelet Count 214 X10^3/uL (150-400); Red Cell Distribution Width 14.7 % (11.6-14.8); White Blood Cell Count 7.1 X10^3/uL (4.5-11.0)
[2023-10-11 06:32] LABS: BUN Creatinine Ratio 31.1 (6-22); Blood Urea Nitrogen 19 mg/dL (7-17); Calcium 8.8 mg/dL (8.4-10.2); Carbon Dioxide 25 mmol/L (22-32); Chloride 107 mmol/L (98-107); Estimated Glomerular Filt Rate > 60 mL/min (>60); Glucose 97 mg/dL (80-110); HEMOLYSIS < 15 (0-50); Potassium 3.5 mmol/L (3.4-5.1); Sodium 139 mmol/L (137-145)
[2023-10-11 08:00] VITALS: BP 138/81; PULSE 78; RESP 16; TEMP 36.6; O2SAT 99
--- NOTE | 2023-10-11 09:03 | PT.IPTN ---
Current Diagnoses Cerebral infarction, unspecified (10/07/23) Physical Therapy Treatment Note M2 PT-IP Current Condition Start: 10/08/23 10:25 Freq: NEEDED Status: Active Protocol: Document 10/08/23 11:05 MB (Rec: 10/08/23 12:25 MB [id number]) Physical Therapy Current Condition Current Condition Evaluation Date 10/08/23 Treatment Diagnosis L basal ganglia stroke, recent diagnosis of rectal CA M3 PT-IP Subjective Start: 10/08/23 10:25 Freq: NEEDED Status: Active Protocol: Document 10/11/23 10:00 TS (Rec: 10/11/23 10:07 TS [id number]) Subjective Physical Therapy Visit Type Type Treatment Note Visit Start Time 09:03 Visit Stop Time 09:[address] REPORTER Visits 2 Physical Therapy Visit Comments Patient Comments Pt found resting in bed, is agreeable to PT. Therapy Pain Assessment Pain When Pain Assessed At Rest Pain Present Pain Present Pain Reported M4 PT-IP Mobility and Gait Start: 10/08/23 10:25 Freq: NEEDED Status: Active Protocol: Document 10/11/23 10:00 TS (Rec: 10/11/23 10:07 TS [id number]) PT-Bed Mobility Assessment Supine to Sit Supine to Sit Independent,Head of Bed Elevated,Bedrails Sit to Supine Sit to Supine Independent,Head of Bed Elevated,Bedrails Scooting Scooting to Edge of Bed Independent Scooting Up and Down in Bed Independent PT-Transfer Assessment Sit to and From Stand Sit to and from Stand Standby Assistance Equipment Transfer Assistive Device Gait Belt,Front Wheeled Walker Orthotic/Prosthetic Devices or Brace: No Comments Mobility Comments Pt performs bed mobility Ind from flat bed. She ambulated ~ 500'SBA with FWW, reports legs are feeling tired. She ambulated back to room, was left in bed, all needs met. Gait Assessment Gait Gait Assistance Required: Standby Assistance,1 Person Assist Distance (Feet) 500 Able to Maintain Weight Bearing Status Yes During Gait Assistive Devices Assistive Device Gait Belt,Front Wheeled Walker Orthotic/Prosthetic Devices or Brace: No Factors Limiting Gait Function Factors Limiting Gait Function Poor Safety Awareness PT-Balance Assessment Sitting Balance and Reactions Static Sitting Balance Ability Normal Dynamic Sitting Balance Ability Normal Standing Balance and Reactions Static Standing Balance Ability Good Dynamic Standing Balance Ability Good Device Used FWW M5 PT-IP Objective Assessments Start: 10/08/23 10:25 Freq: NEEDED Status: Active Protocol: Document 10/08/23 11:05 MB (Rec: 10/08/23 12:25 MB [id number]) Orientation Orientation/Cognition Level of Alertness Alert Orientation Name,Age,Birthday,Month,Year, Day of Week,Place,Situation Language Function Ability Word Finding Difficulties Safety Awareness Decreased Safety Awareness Comments Slow processing but does appear to provide accurate course of events history when using her google calendar to remember what happened when Gross Range of Motion Upper Extremity ROM Assessment Within Functional Limits Lower Extremity ROM Assessment Within Functional Limits Strength Upper Extremity Strength Assessment Bilaterally Impaired Lower Extremity Strength Assessment Bilaterally Impaired Comments Strength Comments Left extremities are weaker than the right but weakness all extremities. R shoulder is grossly 4+/5, left shoulder is 4/5; right elbow flexion not checked d/t IV and left elbow extension is 3+/5, weaker electrician locomotive on left. Left hip flexion is 3+/5, right is 4/5, B knee flexion and extension are 4/5 and B ankler DF and great toe extension are 4+/5 Coordination Assessment Gross Coordination Gross Coordination Impaired Assessment Finger to Nose Test Moderate Impairment Foot Tapping Test Minimal Impairment Heel on Franco Test Minimal Impairment Coordination Comments B finger to nose is abnormal, worse on the left as far as dysmetria and striking her nose hard with the testing, slow on the right Sensation Assessment Sensation Gross Sensation WNL Light Touch Intact Comments Sensation Comments Pt reports paresthesias in LLE Muscle Tone Muscle Tone WNL Yes M6 PT-IP Treatment Start: 10/08/23 10:25 Freq: NEEDED Status: Active Protocol: Document 10/11/23 10:00 TS (Rec: 10/11/23 10:07 [id number]) Physical Therapy Treatment Education Education Provided Safety M7 PT-IP Assessment and Plan Start: 10/08/23 10:25 Freq: NEEDED Status: Active Protocol: Document 10/11/23 10:00 TS (Rec: 10/11/23 10:07 [id number]) PT Summary Assessment and Plan Potential Rehabilitation Potential Good Summary Impairments Pain,Strength,Balance, Coordination,Cognition,Bed Mobility,Transfers,Gait, Activity Tolerance Progress Towards Goals Progressing Toward Goals Assessment Summary Brigid continues to do well with her mobility. She is Ind for all bed mobility and ambulates long distances in the hallway ~500. Pt continues to recommend home vs SNF. Goals Transfer Goal Independent Gait Goal Independent Gait Distance 100 Other Goals Ascend and descend 3 steps with right rail and no more than superv to allow safe home entrance. Pt will perform WNLs on standardized balance test to decrease fall risk. Days to Meet Goals 5 Frequency of Treatment Frequency Of Treatment Once a Day Treatment Plan Physical Therapy Treatment Plan Bed Mobility Training,Transfer Training,Gait Training, Therapeutic Exercise,Balance Retraining,Discharge Planning, Hot or Cold Pack,Neuromuscular Re-ed,Coordination Retraining ,Manual Therapy Weight Bearing Status Weight Bearing Status Weight Bear as Tolerated Recommendations To Nursing Amount of Assist Needed Standby Assistance Discharge Recommendations PT Discharge Recommendations Home vs SNF Transportation Needs at Discharge Private Vehicle
[2023-10-11 10:03] VITALS: BP 138/81; PULSE 78
[2023-10-11] MEDS: ASPIRIN EC 81 MG TABLET PO (10:03)
[2023-10-11] MEDS: LOSARTAN 50 MG TABLET PO (10:03)
[2023-10-11] MEDS: AMLODIPINE 5 MG TABLET PO (10:03)
--- NOTE | 2023-10-11 10:52 | P.DS_ITS ---
History of Present Illness History of Present Illness Chief complaint: DX, CVA Narrative: 73 years old female with a past medical history of hypertension was initially evaluated by her primary physician with significant speech issues. She had went to bed normally and woke up around midnight not being able to talk. In the morning on 10/04, was told to have a major mental status change and was not able to focus. Denies any weakness in the upper or lower extremity with no significant gait instability. Reports a newly diagnosed colorectal cancer with scheduled chemotherapy. Subsequently underwent MRI of the head that shows an acute infarction involving the left basal ganglia. Neurology was consulted and recommended management medically but transfer to higher level of care due to lack of telemetry or other available medical facilities. Subsequently transferred to [facility] for further care Interval history: The patient was admitted overnight and a in continues to have change in mental status according to her sister's Sylvia and anti. Alyse is present at bedside and I spoke with Marissa by phone in at the bedside with the patient. Both agree that she appears to have mild confusion and a child-like manner. The patient appears to understand her condition on interview with fluent speech though also appears frustrated at times. She states persistent weakness and has mild left pronator drift. She states chronic left leg pain with a history of sciatica, and uses a TENS unit at home, which her sister brought in. She relates that she was severely constipated starting at the end of June and underwent evaluation including biopsy of an anal mass on 09/13/2023, with biopsy report per record showing invasive moderately differentiated colonic adenocarcinoma present at the deep edge of the excision, with normal expression of mismatch repair proteins unlikely to represent Mendiola syndrome. Per her oncologist Dr. Costa MRI was without patricia disease, however with signs of local invasion through the internal/external anal sphincter, right levator ani muscle and potentially the posterior wall of the vagina, without evidence of metastatic disease on staging, however right lung 5 mm nodule favored to be unrelated. Discharge Providers Provider Date of admission: 10/07/23 23:10 Discharge Date: 10/11/23 Primary care physician: Porter Clark Consults: 10/08/23 00:51 Consult to Physical Therapy Evaluate & Treat Comment: Physician Instructions: Evaluate and Treat 10/08/23 00:52 Consult to Occupational Therapy Evaluate & Treat Comment: Physician Instructions: Evaluate and treat Consult to Speech Therapy Evaluate & Treat Comment: Physician Instructions: Evaluate and treat Discharge provider: Placido Del Toro MD Summary Hospital Course Discharge Diagnosis: 1. 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 2. Hypertension, present on admission and active. 3. Hypokalemia, present on admission and resolved. 4. Colorectal cancer, present on admission and active. 5. Chronic back pain with left-sided sciatica, present on admission and active. Hospital Course: She was admitted with a stroke syndrome which was primarily expressive aphasia. She had her initial MRI in Monday. This was read as a basal ganglia infarct. A repeat MRI here was read as a deep left frontal infarct which is consistent with her aphasia syndrome. She was treated with aspirin and statin. The patient did have some mild waxing and waning of symptoms of her speech. However over all she improved and stabilized. Her blood pressure was also stable. Ultimately it was felt that she would be suitable for discharge home with outpatient speech therapy. She will be discharged home with close follow up with her primary care. In addition she was going to have monotherapy as she was going to be starting chemotherapy for newly diagnosed colorectal cancer in the next several days. This will likely increase her chances of thrombocytopenia from chemotherapy therefore we will avoid dual antiplatelet therapy. Her CT angiogram was negative for significant intracranial arterial abnormalities of the head or neck. She was in sinus rhythm while in the hospital. Status at Discharge Cognitive/behavioral status at discharge: oriented Functional status at discharge: independent ambulation Overall status at discharge: patient is progressing back to baseline Time Spent with Patient Time spent: Greater than 30 minutes Exam Vital Signs (past 8 hours): - 10/11/23 03:52 10/11/23 10:03 Temperature 98.1 F Pulse Rate 75 78 Respiratory Rate 14 Blood Pressure 156/78 H 138/81 Pulse Oximetry 99 Oxygen Flow Rate 0 Oxygen Delivery Method Room Air Oxygen Flow Rate 0 Narrative Exam Narrative: NAD, alert and oriented. Fluent speech. Her speech is much better. She does have occasional pauses and gets mildly frustrated but this is improved tremendously. Lungs are clear, normal rate and effort. Heart is regular, no murmur gallop or rub. Abdomen is soft, non distended. Extremities are free of edema. Objective ECG Impression: Tele: NSR. Imaging Multiple studies:: Radiologist's impression: Brain MRI: There is a subacute infarct seen involving the deep white matter of the left frontal lobe. Brain CT: 1. Small area of hypoattenuation in the left periventricular white matter possibly related to subacute infarct or chronic microvascular ischemic changes. 2. No definite acute loss of guillaume-white matter differentiation. No acute intracranial hemorrhage or mass effect. If there is continued concern for acute stroke, recommend MRI of the brain for further evaluation. Head and neck CTA: 1. No significant intracranial arterial abnormality is seen. 2. No significant abnormality is seen within the arteries of the neck. 3. Smaller hypoattenuation in the left periventricular white matter may represent a subacute infarct or chronic microvascular ischemic changes. No acute intracranial hemorrhage or mass effect. Consider MRI of the brain for further evaluation. Echo: The ejection fraction is estimated to be 60-65%. Diastolic parameters suggest probable normal left ventricular diastolic function and normal filling pressures. The right ventricle is normal in size and function. No significant valvular abnormalities. Pulmonary artery pressures cannot be estimated because of the lack of a measurable TR jet velocity but the IVC suggests a CVP of around 3 mmHg. Labs 10/11/23 05:37 10/11/23 05:37 Labs: Laboratory Results - last 24 hr 10/11/23 05:37 WBC 7.1 RBC 4.30 Hgb 12.7 Hct 38.3 MCV 89.0 MCH 29.6 MCHC 33.3 RDW 14.7 Plt Count 214 Sodium 139 Potassium 3.5 Chloride 107 Carbon Dioxide 25 BUN 19 H Creatinine 0.61 Estimated GFR > 60 BUN/Creatinine Ratio 31.1 H Glucose 97 Calcium 8.8 PFSH Medical History Chronic low back pain with left-sided sciatica Essential hypertension Colorectal cancer CVA (cerebral vascular accident) Social History household members: none Smoking Status: Never smoker alcohol intake: former Discharge Assessment & Plan Assessment and Plan Assessment: 1. 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 2. Hypertension, present on admission and active. 3. Hypokalemia, present on admission and resolved. 4. Colorectal cancer, present on admission and active. 5. Chronic back pain with left-sided sciatica, present on admission and active. Plan of Treatment: Discharge home with aspirin and statin therapy. She will be started on chemotherapy this Monday. I did speak at length with her and her sister, and, several times throughout her hospitalization including on the day of discharge regarding her condition, and the general plan. Discharge Plan Discharge Plan Patient Disposition: Home Provider Discharge Comment: Stable for discharge home with family back to [place], outpatient speech pathology. Discharge orders & Medications Prescriptions: New aspirin 81 mg Tablet,Delayed Release (Dr/Ec) 81 mg PO DAILY Qty: 30 11RF atorvastatin 20 mg Tablet 80 mg PO BEDTIME Qty: 30 11RF Continued amlodipine 5 mg tablet 5 mg PO DAILY losartan 50 mg tablet 50 mg PO DAILY oxycodone 5 mg tablet 5 mg PO Q6H PRN (Reason: pain) capecitabine [Xeloda] 500 mg tablet 500 mg PO DAILY Rx Instructions: take 2 tabs orally twice per day on monday to monday on days of radiation capecitabine [Xeloda] 150 mg tablet 150 mg PO DAILY Rx Instructions: Take two tabs twice per day on monday to monday on days of radiation ondansetron HCl 8 mg tablet 8 mg PO Q8H PRN (Reason: nausea) prochlorperazine maleate [Compazine] 10 mg Tablet 10 mg PO Q6HR tretinoin [Retin-A] 0.05 % Cream 1 applic TOPICAL BEDTIME Rx Instructions: apply 1 topically nightly once every 2 weeks as needed polyethylene glycol 3350 [Miralax] 17 gram/dose Powder 17 g PO DAILY PRN (Reason: Constipation) acetaminophen tablet 500 mg PO Q6HR PRN (Reason: Pain, Mild) Follow up/Referrals: Porter Clark [Primary Care Provider] - Discharge Health Status Multidrug resistant organism: No MDRO Diet/Activity/Treatments Diet: Regular Activity: As tolerated. Visit Report/Discharge Packet Stand Alone Forms: Patient Portal/API, Stroke Signs & Symptoms Discharge Data Primary Care Provider: Porter Clark Quality VTE Deep Vein Thrombosis/Pulmonary Embolism Present on Admission: No
[2023-10-11] MEDS: ACETAMINOPHEN 325 MG TABLET 650 MG PO (11:19)
--- NOTE | 2023-10-11 13:19 | CM.DPC ---
DCP Cont. Reviewed EMR and team rounds for status updates. Pt has been medically cleared for home discharge. Her sister will be transporting her today at 4:00pm back home. They do already have a ferry reservation for 8:30pm. No further DCP needs are indicated at this time.
--- NOTE | 2023-10-11 17:27 | PC.NURSE ---
X2 iv d/cd , d/c instructions went over, all questions answered,wheeled to front of hospital ,assisted into sisters car.
== END 2023-10-11 16:55 | disposition home or self-care (01) | DRG 65 ==
PROVIDERS: Hospitalist; Internal Medicine; Admitting Provider Internal Medicine; PCP Student in an Organized Health Care Education/Training Program; Referring Provider Internal Medicine; Visit Provider Internal Medicine
DX: I63.9 Cerebral infarction, unspecified (principal); C18.9 Malignant neoplasm of colon, unspecified; C19 Malignant neoplasm of rectosigmoid junction; R47.01 Aphasia; E87.6 Hypokalemia; I10 Essential (primary) hypertension; M54.42 Lumbago with sciatica, left side; G89.29 Other chronic pain; R29.705 NIHSS score 5; R29.703 NIHSS score 3
CPT/HCPCS: 36415; 70450; 70496; 70498; 70551; 80048; 80053; 80061; 81001; 82962; 83735; 84443; 85025; 85027; 85610; 85730; 92610; 93306; 97116; 97129; 97162; 97165; 97530; 97535; J0360; J2405; Q9967